=== PATIENT | male | born 1980 | race Caucasian/White ===

== ENCOUNTER 2018-04-04 23:45 | Emergency (ER) | payer SELFPAY ==
[2018-04-04 23:46] VITALS: BP 129/89; PULSE 105; RESP 14; TEMP 36.6; O2SAT 99; BMI 20.5
--- NOTE | 2018-04-05 01:26 | RAD_ITS ---
STUDY: X-RAY - LEFT HAND REASON FOR EXAM: Male, 38 years old. Infection. Open wound over second metacarpal. Swelling. TECHNIQUE: 3 view(s) of the hand. COMPARISON: None. FINDINGS: Normal radiocarpal articulation. Normal distal radioulnar joint. Normal visualized carpal bones. Normal carpal articulations Normal carpometacarpal articulation of the thumb. Normal second through fifth carpometacarpal joints. Normal metacarpi. Normal metacarpophalangeal joint of the thumb. Normal interphalangeal joint of the thumb. Normal proximal and distal phalanges of the thumb. Normal metacarpophalangeal joints of the second through fifth fingers. Normal proximal and distal interphalangeal joints of the second through fifth fingers. Normal phalanges of the second through fifth fingers. Soft tissue swelling dorsum of hand on the lateral view at the level of the metacarpal head and metacarpal phalangeal joint. No radiopaque foreign body. RAD/Hand Min 3 Views IMPRESSION: Soft tissue swelling dorsum of hand. No radiopaque foreign body. Electronically Signed: Boy Altman MD at 3:08 EDT , Service support ,
[2018-04-05] MEDS: Cefazolin 1 GM/50 ML BAG IV (01:52)
--- NOTE | 2018-04-05 02:28 | ED.VISSUMM ---
- ER Visit Summary Date of Service: 04/05/18 Chief Complaint: Left hand infection History of Present Illness: The patient is a 38 M presenting with left hand infection. He states 2 days ago a broken pipe cut his left hand. He then also hit it with a hammer on accident. He has had increasing swelling, redness and drainage from the wound. He has history of previous infection requiring surgery. He denies fever or other complaints. His tetanus is up-to-date. He admits to methamphetamine use. He states he did not use it today. Physical Examination: Vitals are stable. Patient is afebrile. Alert no acute distress. HEENT exam is unremarkable. Neck is supple. Lungs are clear and equal bilaterally. Heart is regular rate and rhythm. Extremities left dorsal hand 3 cm laceration with purulent drainage overlying first MCP, active full range of motion, neurovascularly intact distally. Skin is warm and dry. No focal neurologic deficit. Remainder of exam is unremarkable. Emergency Department Course and Treatment: Patient is given Ancef IV. X-ray left hand shows soft tissue swelling dorsum of hand. No radiopaque foreign body. Patient refuses admission to the hospital. He is advised risks of worsening infection, loss of limb, and . Patient understands these risks and signed out AGAINST MEDICAL ADVICE. He is given a prescription for Keflex and Bactrim. Advised to follow-up with primary care physician. Advised return to ED if he worsens. Disposition: Left AGAINST MEDICAL ADVICE Impression: Left hand wound infection This note was generated with [employer] dictation software. It may contain incorrect words, spelling, and punctuation that were not noted in review of the chart prior to signing ED Disposition - Plan for ED Patient: Disposition: Home or Assisted Living Chief Complaint: Wound Instructions: Wound Care Prescriptions: Cephalexin [Keflex] 500 mg PO Q6 #40 capsule Smz/Tmp Ds [Bactrim Ds] 1 tablet PO BID #14 tablet Referrals: Kelly Frazier DO [STAFF PHYSICIAN] - Care Physician,No Primary [Primary Care Provider] -
--- NOTE | 2018-04-05 03:10 | ED.DEP ---
ED Disposition - Plan for ED Patient: Chief Complaint: Wound Instructions: Wound Care Prescriptions: Cephalexin [Keflex] 500 mg PO Q6 #40 capsule Smz/Tmp Ds [Bactrim Ds] 1 tablet PO BID #14 tablet Referrals: Care Physician,No Primary [Primary Care Provider] - Kelly Frazier DO [STAFF PHYSICIAN] -
--- NOTE | 2018-04-05 03:27 | ED.RN ---
PT GETTING IMPATIENT WAITING FOR XRAY RESULTS. PT ANTIBIOTIC FINISHED. PT D/C HIS OWN IV AND COVERED IT WITH GAUZE. PT INSTRUCTED NOT TO DO THIS BY THIS RN. PT SINGS AMA FORMS AND VOICES NO FURTHER QUESTIONS. WOUND BANDAGED BY THIS RN WITH TELFA AND GAUZE WRAPPING. PT GIVEN WRITTEN AND VERBAL D/C INSTRUXCTIONS AND HOME GOING PRESCRIPTIONS. EDUCATED ON IMPORTANCE OF FINISHING ANTIBIOTIC. PT TO RETURN TO ED FOR ANY NEW OR WORSENED SX. PT AMBULATES OUT OF DEPT BY SELF.
== END 2018-04-05 03:29 | disposition home or self-care (01) ==
PROVIDERS: Emergency Provider Emergency Medicine
DX: S61.412A Laceration without foreign body of left hand, initial encounter (principal); L08.9 Local infection of the skin and subcutaneous tissue, unspecified; W26.8XXA Contact with other sharp object(s), not elsewhere classified, initial encounter; Y93.89 Activity, other specified; Y92.89 Other specified places as the place of occurrence of the external cause; Y99.8 Other external cause status
CPT/HCPCS: 73130; 99283; J7040

== ENCOUNTER 2020-10-05 17:36 | Inpatient (IN) | payer BC, MEDICAID, SELFPAY ==
[2020-10-05] VITALS (7 sets, daily range): BP systolic 133–149; BP diastolic 78–98; PULSE 70–114; RESP 16–18; TEMP 36.9–37.4; O2SAT 97–99; BMI 24.0; BMI 23.8; BMI 23.9
[2020-10-05 18:36] LABS: Absolute Lymphocyte Count 2.03 X10^3/uL (0.83-4.51); Basophil# 0.05 X10^3/uL; Basophil% 0.6 % (0-1); Eosinophil# 0.15 X10^3/uL; Eosinophils% 1.7 % (0-5); Hematocrit 42.7 % (40-54); Hemoglobin 14.3 g/dL (13.0-16.5); Lymphocyte # 2.03 X10^3/ul (4.0); Lymphocyte % 23.1 % (19-41); Mean Corp Hgb Conc 33.5 g/dL (32-36); Mean Corpuscular Volume 89.5 fL (80-94); Mean Platelet Vol. 10.1 fl (6.2-12.0); Monocyte# 0.54 X10^3/uL; Monocyte% 6.2 % (0-10); NRBC Flagged by Analyzer 0 % (0-5); Neutrophil # 5.98 X10^3/uL (2.7-7.7); Neutrophil % 68.1 % (47-70); Platelet Count 248 K/mm3 (150-450); RBC Distribution Width CV 11.9 % (11.6-14.6); RBC Distribution Width SD 38.5 fl (35.1-43.9); Red Blood Count 4.77 M/mm3 (4.6-6.2); White Blood Count 8.8 K/mm3 (4.4-11.0)
[2020-10-05 18:45] LABS: Erythrocyte Sedimentation Rate 5 mm/hr (0-20)
[2020-10-05 18:47] LABS: Anion Gap 4 (5-15); BUN 7 mg/dL (7-18); BUN/Creat Ratio 8.7 RATIO (10-20); CRP < 2.90 mg/L (0.0-3.0); Calcium,Total 8.5 mg/dL (8.5-10.1); Chloride 104 mmol/L (98-107); Creatinine, Serum 0.81 mg/dL (0.70-1.30); EST Glomerular Filtration Rate 114 mL/min (>60); Est Glom Filt Rate - Afr Amer 138 mL/min (>60); Glucose 85 mg/dL (74-106); Potassium 3.6 mmol/L (3.5-5.1); Sodium Level 139 mmol/L (136-145)
--- NOTE | 2020-10-05 19:10 | CT_ITS ---
STUDY: CT LEFT FOREARM WITH CONTRAST REASON FOR EXAM: Male, 40 years old. Left forearm abscess. Drug use. RADIATION DOSAGE (If Supplied By Facility): CTDIvol = ( 24.58 ) mGy, DLP = ( 892.49 ) mGycm TECHNIQUE: Transaxial CT imaging of the right upper extremity from above the elbow to the lower forearm was performed post contrast administration. The examination was performed with intravenous administration of Isovue 300 100ml. Sagittal and coronal images were reconstructed. Individualized dose optimization techniques were used for this CT. COMPARISON: None. FINDINGS: Normal visualized humerus. Normal visualized radius and ulna. There is no abnormality of the radiocapitellar or ulnotrochlear joints. There is diffuse subcutaneous edema the lower arm and upper forearm. In the antecubital space ill-defined fluid collection measuring 1.8 x 1.5 x 1.1 cm in size. There is surrounding edema with enhancement of the wall and surrounding soft tissues. There is enhancement of the tendon from the brachialis was marked abnormal signal within the lower brachialis musculature. CT/Extremity Upper WITH Contrast IMPRESSION: 1. Antecubital abscess. 2. Diffuse soft tissue edema. 3. Abnormal appearance of the distal brachialis musculature which appears low in attenuation in. Question myositis. Electronically Signed: Alirio Lynch DO at 19:54 EST Tel [phone], Service support ,
--- NOTE | 2020-10-05 20:02 | ED.DCSUM_ITS ---
- ER Visit Summary Date of Service: 10/05/20 Chief Complaint: Left arm pain History of Present Illness: The patient is a 40 M who uses IV drugs. He has had pain and swelling to his left forearm which is increasing over the past week. He thinks he missed his vein. Physical Examination: Afebrile and vital signs unremarkable. He has diffuse tenderness and swelling to his left forearm over the anterior side. I do not appreciate focal induration or fluctuance. Compartments are soft. Good range of motion. Neurovascularly intact. Test Results: Labs are all fairly unremarkable, but CT shows an antecubital abscess and questionable myositis. Emergency Department Course and Treatment: Patient was treated with antibiotics. Hospitalist contacted for further care. Hospitalist requested discussion with surgery prior to admission. Spoke with Dr. Mcclendon. She advised that the abscess appears to be in the muscle, and that there should go to orthopedics for further care. I spoke with Dr. Malloy. He said that the patient will need an MRI. I am unable to get an MRI tonight for this condition. Can be done in the morning. He requested admission to medicine for IV antibiotics with consultation to him. I reevaluated the patient. He has continued pain and swelling to his left forearm. I cannot palpate a definite abscess. His compartments remain soft despite the swelling. Good flexion and extension without increasing pain. Neurovascularly intact. I do not believe he has compartment syndrome. He has unremarkable labs and stable vitals. I do not believe he has necrosis at this point. He seems to be stable for admission. Treatment Plan: As above Disposition: Admission Impression: Left antecubital abscess, myositis This note was generated with [employer] dictation software. It may contain incorrect words, spelling, and punctuation that were not noted in review of the chart prior to signing ED Disposition - Plan for ED Patient: Referrals: Care Physician,No Primary [Primary Care Provider] -
--- NOTE | 2020-10-05 21:09 | HP.PCM_ITS ---
History of Present Illness Date of Admission: 10/05/20 Chief Complaint: Left forearm pain and swelling -5 days The patient is a 40 year old M with past medical history of polysubstance use, uses IV methamphetamines who comes in with a left forearm pain and swelling that started 5 days ago. Patient stated that shooting methamphetamines and missed the vein. He subsequently developed swelling in the left forearm as well as erythema and warmth. His left arm has progressively been getting bigger since. He denied any fever or chills or nausea or vomiting. Vitals were stable in the ED. admitting blood work was also unremarkable. CRP was less than 2.90. CT of the upper extremity showed antecubital abscess, diffuse soft tissue edema, abnormal appearance of the distal brachialis muscle, questionable myositis. Orthopedics consult was done from ED Past Medical History Allergies No Known Allergies Allergy (Verified 10/05/20 17:37) Home Medications: Ambulatory Orders Medication Instructions Recorded Ibuprofen 800 mg PO DAILY PRN PRN 10/05/20 Surgical History: - - To spouse left finger MRSA abscess I&D Psychiatric History: No pertinent psych hx Lives: With Family Smoking Status: Current every day smoker Tobacco Use: Cigarettes Alcohol: None Drugs: None - *Family History Maternal History Items: No pertinent history Paternal History Items: No pertinent history Review of Systems Constitutional: Denies: Anorexia, Chills, Fever, Malaise, Weakness, Weight Change Eyes: Denies: Blurred vision, Cataracts, Conjunctivae Inflammation, Pain, Redness HEENT: Denies: Difficulty Hearing, Difficulty Swallowing, Head Aches, Hearing Changes, Sinus Congestion, Sinus Drainage Cardiovascular: Denies: Chest Pain, Claudication, Orthopnea, Palpitations, Paroxysmal Noc. Dyspnea Respiratory: Denies: Cough, Hemoptysis, Shortness of breath at rest, Shortness of breath upon exertion, Sputum production Gastrointestinal: Denies: Abdominal Pain, Constipation, Hematemesis, Hematochezia, Nausea, Vomiting Genitourinary: Denies: Dysuria, Frequency, Incontinence, Nocturia Musculoskeletal: Reports: - - Status post left forearm swelling, pain. Denies: Joint Pain, Joint stiffness, Joint swelling, Joint Tenderness Skin: Denies: Pruritis, Rash, Wounds Neurological: Denies: Numbness, Tingling, Focal weakness Psychiatric: Denies: Anxiety, Depression, Homicidal Ideations, Suicidal Ideations Hematologic/ Lymphatic: Denies: Easy Bruising, Easy Bleeding VTE Information - Inpt Only VTE Present on Admission: No VTE Pharm Prophylaxis ordered?: Yes - Physical Exam Vitals/I&O's: Vital Signs Temp Pulse Resp BP Pulse Ox 98.6 F 99 18 134/78 H 99 10/05/20 19:00 10/05/20 19:00 10/05/20 19:00 10/05/20 19:51 10/05/20 19:00 Oxygen Delivery Method Room Air Weight: 78.4 kg Body Mass Index (BMI) 24.0 Intake and Output for Last 24 Hours 10/03/20 10/04/20 10/05/20 23:59 23:59 23:59 Intake Total 100 / 100 Balance 100 / 100 General: Alert, Oriented x3, Cooperative, No apparent distress HEENT: Atraumatic, PERRLA, EOMI, Normocephalic Oral: Moist Mucosa Neck: Supple Lungs: Clear to auscultation, Normal air movement Cardiovascular: Regular rate, Regular Rhythm, Normal S1, Normal S2, No murmurs Abdomen: Bowel Sounds Present, Soft, Non Tender, Non-Distended, No Hepato- splenomegaly Extremities: Tenderness - Significant swelling of the left forearm with erythema and differential warmth Skin: No rashes, No breakdown Musculoskeletal: No Tenderness to Palpation of Joints or Extremities Lymphatic: No Cervical, Supraclavicular, or Inguinal Adenopathy Neurological: Cranial nerves II-XII grossly intact, Neuro grossly intact Psych/Mental Status: Normal Affect, Appropriate Laboratory Results 10/05/20 18:15: WBC 8.8, RBC 4.77, Hgb 14.3, Hct 42.7, MCV 89.5, MCH 30.0, MCHC 33.5, RDW Std Deviation 38.5, RDW Coeff of Chuckie 11.9, Plt Count 248, MPV 10.1, Immature Gran % (Auto) 0.300, Neut % (Auto) 68.1, Lymph % (Auto) 23.1, Crawford % (Auto) 6.2, Eos % (Auto) 1.7, Baso % (Auto) 0.6, Absolute Neuts (auto) 6.0, Absolute Lymphs (auto) 2.03, Nucleated RBC % 0, ESR 5 10/05/20 18:15: Sodium 139, Potassium 3.6, Chloride 104, Carbon Dioxide 31.0, Anion Gap 4 L, BUN 7, Creatinine 0.81, Estim Creat Clear Calc 131.70, Est GFR (MDRD) Af Amer 138, Est GFR (MDRD) Non-Af 114, BUN/Creatinine Ratio 8.7 L, Glucose 85, Calcium 8.5, C-React Prot Ext Range < 2.90 Assessment/Plan 1. Acute left forearm antecubital abscess/possible myositis continue to IV drug use Started on IV vancomycin and Zosyn, continue on IV vancomycin and Unasyn Orthopedic consulted from ED Will await recommendations 2. Polysubstance use, advised to quit 3. Nicotine dependence, on replacement 4. DVT prophylaxis?low risk; early ambulation recommended Inpatient E&M: 80070 Init Hosp L2
[2020-10-05] MEDS: Ibuprofen 400 MG Tablet 800 MG PO (21:37)
--- NOTE | 2020-10-05 22:59 | PCM.RX.CS ---
Consult Pharmacy has been consulted to manage selected antiobiotic: Vancomycin Type of Consult: New start Suspected Infection: Skin/Soft tissue Prior Doses of Antibiotics Received/Current Regimen: Medications Vancomycin HCl (Vancomycin) 1,000 mg in 200 mls @ 200 mls/hr IV Q8H EDWIGE Discontinued Medications Vancomycin HCl 1,250 mg/ (Sodium Chloride) 275 mls @ 167 mls/hr IV X1 ONE Stop: 10/05/20 20:08 Last Admin: 10/05/20 22:20 Dose: Infused Labs: Sodium 139 mmol/L (136-145) 10/05/20 18:15 Potassium 3.6 mmol/L (3.5-5.1) 10/05/20 18:15 Chloride 104 mmol/L (98-107) 10/05/20 18:15 Carbon Dioxide 31.0 mmol/L (21.0-32.0) 10/05/20 18:15 Anion Gap 4 (5-15) L 10/05/20 18:15 BUN 7 mg/dL (7-18) 10/05/20 18:15 Creatinine 0.81 mg/dL (0.70-1.30) 10/05/20 18:15 Est GFR (MDRD) Af Amer 138 mL/min (>60) 10/05/20 18:15 Est GFR (MDRD) Non-Af 114 mL/min (>60) 10/05/20 18:15 BUN/Creatinine Ratio 8.7 RATIO (10-20) L 10/05/20 18:15 Glucose 85 mg/dL (74-106) 10/05/20 18:15 Weight used for dosin.5 kg Estimated Creatinine Clearance: 132 Goal Trough: 15-20 mcg/mL Pharmacy Plan for Drug Dosing: Pharmacy Service will continue to monitor and adjust dosing as required. Follow-Up Labs: Trough Vancomycin Labs to be done on [date and time ordered]: 10/06/20 @1999
--- NOTE | 2020-10-06 00:02 | PCS.PANDOC ---
PANDEMIC DOCUMENTATION INITIATED: Date: 10/05/20 Time: 1006
[2020-10-06 01:27] LABS: AST(SGOT) 22 U/L (15-37); Alanine Aminotransfer ALT/SGPT 38 U/L (16-61); Albumin, Serum 3.5 g/dL (3.2-5.0); Alkaline Phosphatase 70 U/L (45-117); Bilirubin, Direct 0.08 mg/dL (0.00-0.30); Globulin 3.5 g/dL (2.2-4.2)
[2020-10-06] MEDS: Vancomycin IV 1,000 MG/200 ML BAG 200 MG IV ×3 (04:24→20:15)
[2020-10-06 04:56] VITALS: BP 103/57; PULSE 67; RESP 16; TEMP 36.8; O2SAT 96
--- NOTE | 2020-10-06 07:51 | PN_ITS ---
Subjective: Patient seen and examined. He was admitted with a complaint of left forearm pain and swelling for 5 days after he injected IV methamphetamines. He thinks he missed the vein he subsequently developed swelling and redness and warmth in the site of the injection. He has been managed for left forearm abscess due to IV drug use. Orthopedics consulted. Patient still complains of pain in the left arm today. Review of systems otherwise negative. Vitals/I&O's: Vital Signs Temp Pulse Resp BP Pulse Ox 98.2 F 67 16 103/57 L 96 10/06/20 04:56 10/06/20 04:56 10/06/20 04:56 10/06/20 04:56 10/06/20 04:56 Oxygen Delivery Method Room Air Weight: 166 lb 7 oz Body Mass Index (BMI) 23.8 Intake and Output for Last 24 Hours 10/04/20 10/05/20 10/06/20 23:59 23:59 23:59 Intake Total 875 / 1175 1124 / 1124 Balance 875 / 1175 1124 / 1124 General: Alert, Oriented x3, Cooperative, No apparent distress HEENT: Atraumatic, PERRLA, EOMI, Normocephalic Oral: Moist Mucosa Neck: Supple, No JVD, Negative Carotid Bruits Lungs: Clear to auscultation, Normal air movement, No rhonchi, No wheeze Cardiovascular: Regular rate, Regular Rhythm, Normal S1, Normal S2, No murmurs Abdomen: Bowel Sounds Present, Soft, Non Tender Extremities: No clubbing, No cyanosis, No edema, Capillary Refill Less than 3 Seconds Skin: - - LUE wrapped in bandage Musculoskeletal: No Tenderness to Palpation of Joints or Extremities Lymphatic: No Cervical, Supraclavicular, or Inguinal Adenopathy Neurological: Cranial nerves II-XII grossly intact Psych/Mental Status: Normal Affect, Appropriate, Alert and oriented to time, place, person, mood and affect Laboratory Results 10/05/20 18:15: WBC 8.8, RBC 4.77, Hgb 14.3, Hct 42.7, MCV 89.5, MCH 30.0, MCHC 33.5, RDW Std Deviation 38.5, RDW Coeff of Chuckie 11.9, Plt Count 248, MPV 10.1, Immature Gran % (Auto) 0.300, Neut % (Auto) 68.1, Lymph % (Auto) 23.1, Vance % (Auto) 6.2, Eos % (Auto) 1.7, Baso % (Auto) 0.6, Absolute Neuts (auto) 6.0, Absolute Lymphs (auto) 2.03, Nucleated RBC % 0, ESR 5 10/05/20 18:15: Sodium 139, Potassium 3.6, Chloride 104, Carbon Dioxide 31.0, Anion Gap 4 L, BUN 7, Creatinine 0.81, Estim Creat Clear Calc 131.70, Est GFR (MDRD) Af Amer 138, Est GFR (MDRD) Non-Af 114, BUN/Creatinine Ratio 8.7 L, Glucose 85, Calcium 8.5, C-React Prot Ext Range < 2.90 10/05/20 18:50: Total Bilirubin 0.20, Direct Bilirubin 0.08, AST 22, ALT 38, Alkaline Phosphatase 70, Total Protein 7.0, Albumin 3.5, Globulin 3.5 Diagnostic Data Upper Extremity CT 10/05/20 19:10 IMPRESSION: 1. Antecubital abscess. 2. Diffuse soft tissue edema. 3. Abnormal appearance of the distal brachialis musculature which appears low in attenuation in. Question myositis. Electronically Signed: Alirio Lynch DO at 19:54 EST Tel [phone], Service support , Current Medications Acetaminophen (Acetaminophen 500 Mg Tablet) 500 mg PO Q4H PRN PRN PRN Reason: Temp > 100.4 F Acetaminophen (Acetaminophen 325 Mg Tablet) 650 mg PO Q6H PRN PRN PRN Reason: Pain Score 1-10 Al Hydroxide/Mg Hydroxide (Mag Hydrox/Al Hydrox/Simeth 30 Ml Udc) 30 ml PO Q6H PRN PRN PRN Reason: Gastric Burning Vancomycin IV Pharmacy to Dose (1 ea/ Sodium Chloride) 500 mls @ 250 mls/hr IV PRN PRN; Protocol PRN Reason: Rx to Dose Vancomycin HCl (Vancomycin) 1,000 mg in 200 mls @ 200 mls/hr IV Q8H EDWIGE Last Infusion: 10/06/20 05:28 Dose: Infused Documented by: Sodium Chloride () 250 mls @ 15 mls/hr IV .[id number] PRN PRN Reason: Saline Flush Ampicillin Sodium/Sulbactam (Sodium 3 gm/ Sodium Chloride) 112 mls @ 150 mls/hr IV Q8 [facility] Last Infusion: 10/06/20 06:29 Dose: Infused Documented by: Ibuprofen (Ibuprofen 600 Mg Tablet) 600 mg PO Q8H PRN PRN PRN Reason: Pain Score 1-10 Nicotine (Nicotine 21 Mg Patch) 21 mg TD DAILY [facility] Last Admin: 10/06/20 00:46 Dose: 21 mg Documented by: Nicotine Polacrilex (Nicotine Polacrilex 2 Mg Gum) 2 mg PO Q2H PRN PRN PRN Reason: Nicotine Craving Ondansetron HCl (Ondansetron 4 Mg/2 Ml Vial) 4 mg IV Q8H PRN PRN PRN Reason: NAUSEA/VOMITING Senna (Senna Tablet) 2 tablet PO QHS PRN PRN Reason: Constipation Sodium Chloride (0.9% Saline Lock 10 Ml Syringe) 10 - 40 ml IV UD PRN PRN Reason: SALINE FLUSH STROKE Vital Signs/Narrative: Vital Signs Temp Pulse Resp BP Pulse Ox 10/06/20 04:56 98.2 F 67 16 103/57 L 96 Medical Necessity - Tobacco Use Smoking Status: Current every day smoker Tobacco Use: Cigarettes Assessment/Plan #Acute left forearm abscess due to IV drug use * On IV vancomycin and Unasyn. * Orthopedics consulted, await recommendations. * Tylenol and ibuprofen as needed for pain * #Polysubstance abuse: Counseled on quitting. To follow-up with outpatient rehab services upon discharge #Nicotine dependence: Nicotine patch. Counseled to quit DVT prophylaxis: Low risk. Encouraged to ambulate. Inpatient E&M: 90425 Subs Hosp L2
[2020-10-06] MEDS: Ibuprofen 600 MG Tablet PO ×2 (08:01→16:36)
[2020-10-06 08:07] LABS: Absolute Lymphocyte Count 1.46 X10^3/uL (0.83-4.51); Absolute Neutrophil Count 9.6 X10^3/uL (2.0-7.7); Basophil# 0.04 X10^3/uL; Basophil% 0.3 % (0-1); Eosinophil# 0.13 X10^3/uL; Eosinophils% 1.1 % (0-5); Hematocrit 44.6 % (40-54); Hemoglobin 14.9 g/dL (13.0-16.5); Lymphocyte # 1.46 X10^3/ul (4.0); Mean Corp Hgb Conc 33.4 g/dL (32-36); Mean Corpuscular Hgb 29.7 pg (27.0-32.0); Mean Corpuscular Volume 88.8 fL (80-94); Mean Platelet Vol. 10.1 fl (6.2-12.0); Monocyte# 0.93 X10^3/uL; Monocyte% 7.6 % (0-10); NRBC Flagged by Analyzer 0 % (0-5); Neutrophil # 9.61 X10^3/uL (2.7-7.7); Neutrophil % 78.7 % (47-70); Platelet Count 259 K/mm3 (150-450); RBC Distribution Width CV 11.9 % (11.6-14.6); RBC Distribution Width SD 38.9 fl (35.1-43.9); Red Blood Count 5.02 M/mm3 (4.6-6.2); White Blood Count 12.2 K/mm3 (4.4-11.0)
[2020-10-06 08:27] LABS: Anion Gap 4 (5-15); BUN 6 mg/dL (7-18); BUN/Creat Ratio 8.7 RATIO (10-20); Calcium,Total 7.9 mg/dL (8.5-10.1); Chloride 108 mmol/L (98-107); Creatinine, Serum 0.69 mg/dL (0.70-1.30); EST Glomerular Filtration Rate 136 mL/min (>60); Est Glom Filt Rate - Afr Amer 165 mL/min (>60); Estimated Creatinine Clearance 149.88 ml/min; Glucose 101 mg/dL (74-106); Potassium 3.8 mmol/L (3.5-5.1); Sodium Level 140 mmol/L (136-145)
--- NOTE | 2020-10-06 09:19 | MRI_ITS ---
STUDY: MRI LEFT ELBOW REASON FOR EXAM: Male, 40 years old. lt elbow infection TECHNIQUE: Standardized fat and water weighted pulse sequences were obtained in all 3 orthogonal planes. COMPARISON: None. FINDINGS: Normal radio-capitellum articulation. Normal radial collateral ligamentous complex. Normal common extensor tendon. Normal ulnotrochlear articulation. Normal ulnar collateral ligamentous complex. Normal common flexor tendon. The cubital tunnel is normal, with a normal ulnar nerve. Normal biceps tendon and distal insertion. Normal lacertus fibrosis. Normal brachialis musculotendinous insertion. Normal triceps tendon and teno-osseous insertion. Normal olecranon process. The visualized distal humerus, proximal radius, and ulna are normal. There is diffuse skin thickening and edema of subcutaneous fat consistent with known cellulitis. There is significant edema of the brachialis muscle worrisome for myositis. No definite loculated fluid collection to suggest abscess. MRI/Upper Ext Joint Only(Routine) IMPRESSION: Cellulitis with myositis of the brachialis muscle. No MR evidence of abscess, septic arthritis, or osteomyelitis. Electronically Signed: Shawn Mustafa MD at 13:17 EST Tel , Service support ,
--- NOTE | 2020-10-06 09:57 | CASEMGMT ---
SW met w/pt in room in regard to prior level of function and anticipated discharge plan. PCP/Specialists: None Insurance: Griselda VAZQUEZ: Parents LW/POA: None Living arrangements: Pt lives home w/parents. Pt has children and has again started to see them. Pt is fully independent DME/HHC/SNF: None Plan: Home SW spoke w/pt in regard to substance abuse. Pt states was clean for 26.5 months, hasn't injected in over four years. He explains got in touch with a girl he used to know and was offered a line, didn't even think twice and used, started feeling good, and then injected also. Pt states a couple of days later his arm started hurting. Pt states he has his life finally in order and doesn't want to go back. He states he was bored, is not sure why he did what he did, expressing frustration w/himself for using. Pt has no intentions of using again. Pt states last time he got sober mostly on his own, did attend NA meetings but eventually stopped. Pt declined resources, states he may start going to NA and knows where to go. SW spoke w/pt also about anything he may need at discharge, pt does not anticipated needing home care, if he needs dressing changes he states he thinks can manage it. Pt was open to taking a list of PCPs, SW brought list in but pt is now at MRI. List left in room, RN aware. Plan: Home, no needs anticipated. Should needs arise, SW/CM are available. KARINA Reyes
[2020-10-06 10:56] VITALS: BP 142/76; PULSE 95; RESP 16; TEMP 36.8; O2SAT 96
[2020-10-06] MEDS: 0.9% Saline Lock 10 ML Syringe IV ×2 (11:37→20:16)
--- NOTE | 2020-10-06 14:00 | CON.PCM_ITS ---
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 Began developing swelling and pain 2 days later progressively worse presented to the ER 10/15/[address] scan questionable for antecubital abscess and myositis of brachialis. Denies fevers chills states erythema has improved however swelling and arm has gotten worse. He is right-hand dominant history of MRSA left index finger. Majority of his pain is in the arm and antecubital area. Past Medical History Allergies No Known Allergies Allergy (Verified 10/05/20 17:37) Home Medications: Ambulatory Orders Medication Instructions Recorded Ibuprofen 800 mg PO DAILY PRN PRN 10/05/20 Surgical History: - - To spouse left finger MRSA abscess I&D Psychiatric History: Depression Lives: With Family Smoking Status: Current every day smoker Tobacco Use: Cigarettes, Chew Alcohol: None Drugs: Marijuana, - - Methamphetamine - *Family History Maternal History Items: No pertinent history Paternal History Items: No pertinent history Review of Systems Constitutional: Denies: Chills, Fever, Night Sweats, Malaise, Fatigue Musculoskeletal: Reports: Arm Pain, Joint stiffness, Joint swelling, Muscle pain Neurological: Denies: Numbness, Tingling - Physical Exam Vitals/I&O's: Vital Signs Temp Pulse Resp BP Pulse Ox 98.2 F 95 16 142/76 H 96 10/06/20 10:56 10/06/20 10:56 10/06/20 10:56 10/06/20 10:56 10/06/20 10:56 Oxygen Delivery Method Room Air Weight: 166 lb 7 oz Body Mass Index (BMI) 23.8 Intake and Output for Last 24 Hours 10/04/20 10/05/20 10/06/20 23:59 23:59 23:59 Intake Total 875 / 1175 1436 / 1436 Balance 875 / 1175 1436 / 1436 General: Alert, Oriented x3, Cooperative, No apparent distress Extremities: Capillary Refill Less than 3 Seconds, Peripheral Pulses Normal, Tenderness, - - Left upper extremity with nearly full sleeve of tattoos. No joint effusion about the elbow compartments are soft however there is swelling in the arm anterior medial and forearm, no crepitation stiffness of elbow range of motion no gross motor or sensory deficits. Unable to appreciateinjectionsite Laboratory Results 10/05/20 18:15: WBC 8.8, RBC 4.77, Hgb 14.3, Hct 42.7, MCV 89.5, MCH 30.0, MCHC 33.5, RDW Std Deviation 38.5, RDW Coeff of Chuckie 11.9, Plt Count 248, MPV 10.1, Immature Gran % (Auto) 0.300, Neut % (Auto) 68.1, Lymph % (Auto) 23.1, [place] % (Auto) 6.2, Eos % (Auto) 1.7, Baso % (Auto) 0.6, Absolute Neuts (auto) 6.0, Absolute Lymphs (auto) 2.03, Nucleated RBC % 0, ESR 5 10/05/20 18:15: Sodium 139, Potassium 3.6, Chloride 104, Carbon Dioxide 31.0, Anion Gap 4 L, BUN 7, Creatinine 0.81, Estim Creat Clear Calc 131.70, Est GFR (MDRD) Af Amer 138, Est GFR (MDRD) Non-Af 114, BUN/Creatinine Ratio 8.7 L, Glucose 85, Calcium 8.5, C-React Prot Ext Range < 2.90 10/05/20 18:50: Total Bilirubin 0.20, Direct Bilirubin 0.08, AST 22, ALT 38, Al kaline Phosphatase 70, Total Protein 7.0, Albumin 3.5, Globulin 3.5 10/06/20 07:45: WBC 12.2 H, RBC 5.02, Hgb 14.9, Hct 44.6, MCV 88.8, MCH 29.7, MCHC 33.4, RDW Std Deviation 38.9, RDW Coeff of Chuckie 11.9, Plt Count 259, MPV 10.1, Immature Gran % (Auto) 0.300, Neut % (Auto) 78.7 H, Lymph % (Auto) 12.0 L, [place] % (Auto) 7.6, Eos % (Auto) 1.1, Baso % (Auto) 0.3, Absolute Neuts (auto) 9.6 H, Absolute Lymphs (auto) 1.46, Nucleated RBC % 0 10/06/20 07:45: Sodium 140, Potassium 3.8, Chloride 108 H, Carbon Dioxide 28.0, Anion Gap 4 L, BUN 6 L, Creatinine 0.69 L, Estim Creat Clear Calc 149.88, Est GFR (MDRD) Af Amer 165, Est GFR (MDRD) Non-Af 136, BUN/Creatinine Ratio 8.7 L, Glucose 101, Calcium 7.9 L Current Medications Acetaminophen (Acetaminophen 500 Mg Tablet) 500 mg PO Q4H PRN PRN PRN Reason: Temp > 100.4 F Acetaminophen (Acetaminophen 325 Mg Tablet) 650 mg PO Q6H PRN PRN PRN Reason: Pain Score 1-10 Al Hydroxide/Mg Hydroxide (Mag Hydrox/Al Hydrox/Simeth 30 Ml Udc) 30 ml PO Q6H PRN PRN PRN Reason: Gastric Burning Vancomycin IV Pharmacy to Dose (1 ea/ Sodium Chloride) 500 mls @ 250 mls/hr IV PRN PRN; Protocol PRN Reason: Rx to Dose Vancomycin HCl (Vancomycin) 1,000 mg in 200 mls @ 200 mls/hr IV Q8H [facility] Last Infusion: 10/06/20 12:37 Dose: Infused Documented by: Sodium Chloride () 250 mls @ 15 mls/hr IV .[id number] PRN PRN Reason: Saline Flush Ampicillin Sodium/Sulbactam (Sodium 3 gm/ Sodium Chloride) 112 mls @ 150 mls/hr IV Q8 [facility] Last Infusion: 10/06/20 13:51 Dose: Infused Documented by: Ibuprofen (Ibuprofen 600 Mg Tablet) 600 mg PO Q8H PRN PRN PRN Reason: Pain Score 1-10 Last Admin: 10/06/20 08:01 Dose: 600 mg Documented by: Nicotine (Nicotine 21 Mg Patch) 21 mg TD DAILY [facility] Last Admin: 10/06/20 08:02 Dose: 21 mg Documented by: Nicotine Polacrilex (Nicotine Polacrilex 2 Mg Gum) 2 mg PO Q2H PRN PRN PRN Reason: Nicotine Craving Ondansetron HCl (Ondansetron 4 Mg/2 Ml Vial) 4 mg IV Q8H PRN PRN PRN Reason: NAUSEA/VOMITING Senna (Senna Tablet) 2 tablet PO QHS PRN PRN Reason: Constipation Sodium Chloride (0.9% Saline Lock 10 Ml Syringe) 10 - 40 ml IV UD PRN PRN Reason: SALINE FLUSH Last Admin: 10/06/20 11:37 Dose: 10 ml Documented by: Assessment/Plan Left elbow cellulitis myositis of brachialis extensive without abscess or osteomyelitis confirmed by MRI Will need IV antibiotics until clinical response then conversion to broad- spectrum oral antibiotics upon discharge Encourage elbow range of motion, surgical intervention warranted at this point. Counseled on tobacco and drug cessation.
[2020-10-06 17:00] VITALS: BP 134/75; PULSE 71; RESP 18; TEMP 37.2; O2SAT 95
[2020-10-06] MEDS: Acetaminophen 325 MG Tablet 650 MG PO (20:21)
[2020-10-06 20:22] VITALS: BP 123/67; PULSE 87; RESP 16; TEMP 36.9; O2SAT 95
[2020-10-06 20:49] LABS: Vancomycin, Trough Level 7.1 ug/mL (5.0-15.0)
--- NOTE | 2020-10-06 21:23 | PCM.RX.CS ---
Consult Pharmacy has been consulted to manage selected antiobiotic: Vancomycin Type of Consult: Follow-up Suspected Infection: Skin/Soft tissue Prior Doses of Antibiotics Received/Current Regimen: Medications Vancomycin HCl 1,500 mg/ (Sodium Chloride) 530 mls @ 250 mls/hr IV Q8H [facility] Discontinued Medications Vancomycin HCl (Vancomycin) 1,000 mg in 200 mls @ 200 mls/hr IV Q8H [facility] Last Admin: 10/06/20 20:15 Dose: 200 mls/hr Labs: Sodium 140 mmol/L (136-145) 10/06/20 07:45 Potassium 3.8 mmol/L (3.5-5.1) 10/06/20 07:45 Chloride 108 mmol/L (98-107) H 10/06/20 07:45 Carbon Dioxide 28.0 mmol/L (21.0-32.0) 10/06/20 07:45 Anion Gap 4 (5-15) L 10/06/20 07:45 BUN 6 mg/dL (7-18) L 10/06/20 07:45 Creatinine 0.69 mg/dL (0.70-1.30) L 10/06/20 07:45 Est GFR (MDRD) Af Amer 165 mL/min (>60) 10/06/20 07:45 Est GFR (MDRD) Non-Af 136 mL/min (>60) 10/06/20 07:45 BUN/Creatinine Ratio 8.7 RATIO (10-20) L 10/06/20 07:45 Glucose 101 mg/dL (74-106) 10/06/20 07:45 Vancomycin Trough 7.1 ug/mL (5.0-15.0) 10/06/20 19:55 Weight used for dosin.5 kg Estimated Creatinine Clearance: 150 Goal Trough: 15-20 mcg/mL Pharmacy Plan for Drug Dosing: Vancomycin trough level of 7.1 was below target range of 15-20. Will increase dose to 1500mg q8h and re-draw trough prior to 4th dose of new regimen. Pharmacy Service will continue to monitor and adjust dosing as required. Follow-Up Labs: Trough Vancomycin Labs to be done on [date and time ordered]: 10/08/20 @0400
[2020-10-07 04:00] VITALS: BP 113/71; PULSE 70; RESP 16; TEMP 36.7; O2SAT 95
[2020-10-07 07:34] VITALS: BP 132/61; PULSE 71; RESP 16; TEMP 36.4; O2SAT 98
[2020-10-07] MEDS: Ibuprofen 600 MG Tablet PO ×2 (07:42→17:47)
--- NOTE | 2020-10-07 07:56 | PN_ITS ---
Subjective: Patient seen and examined. He still complains of pain in his left anterior forearm region. Review of symptoms otherwise negative. He has remained hemodynamically stable. Vitals/I&O's: Vital Signs Temp Pulse Resp BP Pulse Ox 97.6 F L 71 16 132/61 H 98 10/07/20 07:34 10/07/20 07:34 10/07/20 07:34 10/07/20 07:34 10/07/20 07:34 Oxygen Delivery Method Room Air Weight: 166 lb 7 oz Body Mass Index (BMI) 23.8 Intake and Output for Last 24 Hours 10/05/20 10/06/20 10/07/20 23:59 23:59 23:59 Intake Total 875 / 1175 1748 / 1748 642 / 642 Balance 875 / 1175 1748 / 1748 642 / 642 General: Alert, Oriented x3, Cooperative, No apparent distress HEENT: Atraumatic, PERRLA, EOMI, Normocephalic Oral: Moist Mucosa Neck: Supple, No JVD, Negative Carotid Bruits Lungs: Clear to auscultation, Normal air movement, No rhonchi, No wheeze Cardiovascular: Regular rate, Regular Rhythm, Normal S1, Normal S2, No murmurs Abdomen: Bowel Sounds Present, Soft, Non Tender Extremities: No clubbing, No cyanosis, No edema, Capillary Refill Less than 3 Seconds Skin: - - LUE has firm swelling and tenderness as well as mild erythema in antecubital fossa and upper inner arm Musculoskeletal: No Tenderness to Palpation of Joints or Extremities Lymphatic: No Cervical, Supraclavicular, or Inguinal Adenopathy Neurological: Cranial nerves II-XII grossly intact Psych/Mental Status: Normal Affect, Appropriate, Alert and oriented to time, place, person, mood and affect Laboratory Results 10/06/20 07:45: WBC 12.2 H, RBC 5.02, Hgb 14.9, Hct 44.6, MCV 88.8, MCH 29.7, MCHC 33.4, RDW Std Deviation 38.9, RDW Coeff of Chuckie 11.9, Plt Count 259, MPV 10.1, Immature Gran % (Auto) 0.300, Neut % (Auto) 78.7 H, Lymph % (Auto) 12.0 L, [place] % (Auto) 7.6, Eos % (Auto) 1.1, Baso % (Auto) 0.3, Absolute Neuts (auto) 9.6 H, Absolute Lymphs (auto) 1.46, Nucleated RBC % 0 10/06/20 07:45: Sodium 140, Potassium 3.8, Chloride 108 H, Carbon Dioxide 28.0, Anion Gap 4 L, BUN 6 L, Creatinine 0.69 L, Estim Creat Clear Calc 149.88, Est GFR (MDRD) Af Amer 165, Est GFR (MDRD) Non-Af 136, BUN/Creatinine Ratio 8.7 L, Glucose 101, Calcium 7.9 L 10/06/20 19:55: Vancomycin Trough 7.1 Current Medications Acetaminophen (Acetaminophen 500 Mg Tablet) 500 mg PO Q4H PRN PRN PRN Reason: Temp > 100.4 F Acetaminophen (Acetaminophen 325 Mg Tablet) 650 mg PO Q6H PRN PRN PRN Reason: Pain Score 1-10 Last Admin: 10/06/20 20:21 Dose: 650 mg Documented by: Al Hydroxide/Mg Hydroxide (Mag Hydrox/Al Hydrox/Simeth 30 Ml Udc) 30 ml PO Q6H PRN PRN PRN Reason: Gastric Burning Vancomycin IV Pharmacy to Dose (1 ea/ Sodium Chloride) 500 mls @ 250 mls/hr IV PRN PRN; Protocol PRN Reason: Rx to Dose Sodium Chloride () 250 mls @ 15 mls/hr IV .[id number] PRN PRN Reason: Saline Flush Last Infusion: 10/07/20 03:56 Dose: 0 mls/hr Documented by: Ampicillin Sodium/Sulbactam (Sodium 3 gm/ Sodium Chloride) 112 mls @ 150 mls/hr IV Q8 [facility] Last Infusion: 10/07/20 07:45 Dose: Infused Documented by: Vancomycin HCl 1,500 mg/ (Sodium Chloride) 530 mls @ 250 mls/hr IV Q8H [facility] Last Infusion: 10/07/20 06:47 Dose: Infused Documented by: Ibuprofen (Ibuprofen 600 Mg Tablet) 600 mg PO Q8H PRN PRN PRN Reason: Pain Score 1-10 Last Admin: 10/07/20 07:42 Dose: 600 mg Documented by: Nicotine (Nicotine 21 Mg Patch) 21 mg TD DAILY [facility] Last Admin: 10/07/20 07:43 Dose: 21 mg Documented by: Nicotine Polacrilex (Nicotine Polacrilex 2 Mg Gum) 2 mg PO Q2H PRN PRN PRN Reason: Nicotine Craving Ondansetron HCl (Ondansetron 4 Mg/2 Ml Vial) 4 mg IV Q8H PRN PRN PRN Reason: NAUSEA/VOMITING Senna (Senna Tablet) 2 tablet PO QHS PRN PRN Reason: Constipation Sodium Chloride (0.9% Saline Lock 10 Ml Syringe) 10 - 40 ml IV UD PRN PRN Reason: SALINE FLUSH Last Admin: 10/06/20 20:16 Dose: 10 ml Documented by: STROKE Vital Signs/Narrative: Vital Signs Temp Pulse Resp BP Pulse Ox 10/07/20 07:34 97.6 F L 71 16 132/61 H 98 10/07/20 04:00 98.0 F 70 16 113/71 95 Medical Necessity - Tobacco Use Smoking Status: Current every day smoker Tobacco Use: Cigarettes, Chew Assessment/Plan #Acute left forearm cellulitis and myositis due to IV drug use * On IV vancomycin and Unasyn. * MRI of the LUE showed myositis and cellulitis with no evidence of abscess * orthopedics on board: advocate medical management and to continue with IV antibiotics, until swelling and pain subside, then to switch to oral antibiotics * Tylenol and ibuprofen as needed for pain * #Polysubstance abuse: Counseled on quitting. To follow-up with outpatient rehab services upon discharge #Nicotine dependence: Nicotine patch. Counseled to quit DVT prophylaxis: Low risk. Encouraged to ambulate. Inpatient E&M: [id number] Subs Hosp L2
[2020-10-07 08:19] LABS: Absolute Lymphocyte Count 1.42 X10^3/uL (0.83-4.51); Absolute Neutrophil Count 8.7 X10^3/uL (2.0-7.7); Basophil# 0.03 X10^3/uL; Basophil% 0.3 % (0-1); Eosinophil# 0.14 X10^3/uL; Eosinophils% 1.2 % (0-5); Hematocrit 41.8 % (40-54); Lymphocyte # 1.42 X10^3/ul (4.0); Lymphocyte % 12.6 % (19-41); Mean Corp Hgb Conc 33.5 g/dL (32-36); Mean Corpuscular Hgb 29.7 pg (27.0-32.0); Mean Corpuscular Volume 88.7 fL (80-94); Mean Platelet Vol. 9.9 fl (6.2-12.0); Monocyte# 0.96 X10^3/uL; Monocyte% 8.5 % (0-10); NRBC Flagged by Analyzer 0 % (0-5); Neutrophil # 8.69 X10^3/uL (2.7-7.7); Neutrophil % 77.1 % (47-70); Platelet Count 234 K/mm3 (150-450); RBC Distribution Width SD 38.8 fl (35.1-43.9); Red Blood Count 4.71 M/mm3 (4.6-6.2); White Blood Count 11.3 K/mm3 (4.4-11.0)
[2020-10-07 08:30] LABS: Anion Gap 4 (5-15); BUN 7 mg/dL (7-18); BUN/Creat Ratio 10.4 RATIO (10-20); Calcium,Total 8.3 mg/dL (8.5-10.1); Chloride 109 mmol/L (98-107); Creatinine, Serum 0.68 mg/dL (0.70-1.30); EST Glomerular Filtration Rate 139 mL/min (>60); Est Glom Filt Rate - Afr Amer 168 mL/min (>60); Estimated Creatinine Clearance 152.08 ml/min; Glucose 91 mg/dL (74-106); Potassium 3.9 mmol/L (3.5-5.1); Sodium Level 140 mmol/L (136-145)
--- NOTE | 2020-10-07 09:51 | PN.ORTHO_ITS ---
Subjective: seen examined. doing ok. still pain feels may be slightly better, no fever chills. - Physical Exam Vitals/I&O's: Vital Signs Temp Pulse Resp BP Pulse Ox 97.6 F L 71 16 132/61 H 98 10/07/20 07:34 10/07/20 07:34 10/07/20 07:34 10/07/20 07:34 10/07/20 07:34 Oxygen Delivery Method Room Air Weight: 166 lb 7 oz Body Mass Index (BMI) 23.8 Intake and Output for Last 24 Hours 10/05/20 10/06/20 10/07/20 23:59 23:59 23:59 Intake Total 875 / 1175 1748 / 1748 642 / 642 Balance 875 / 1175 1748 / 1748 642 / 642 General: Alert, Oriented x3, Cooperative, No apparent distress Extremities: - - may be slight decreased swelling and improved ROM. compartments soft. NVI no crepitation. Laboratory Results 10/06/20 19:55: Vancomycin Trough 7.1 10/07/20 08:10: WBC 11.3 H, RBC 4.71, Hgb 14.0, Hct 41.8, MCV 88.7, MCH 29.7, MCHC 33.5, RDW Std Deviation 38.8, RDW Coeff of Chuckie 12.0, Plt Count 234, MPV 9.9, Immature Gran % (Auto) 0.300, Neut % (Auto) 77.1 H, Lymph % (Auto) 12.6 L, [place] % (Auto) 8.5, Eos % (Auto) 1.2, Baso % (Auto) 0.3, Absolute Neuts (auto) 8.7 H, Absolute Lymphs (auto) 1.42, Nucleated RBC % 0 10/07/20 08:10: Sodium 140, Potassium 3.9, Chloride 109 H, Carbon Dioxide 27.0, Anion Gap 4 L, BUN 7, Creatinine 0.68 L, Estim Creat Clear Calc 152.08, Est GFR (MDRD) Af Amer 168, Est GFR (MDRD) Non-Af 139, BUN/Creatinine Ratio 10.4, Glucose 91, Calcium 8.3 L Current Medications Acetaminophen (Acetaminophen 500 Mg Tablet) 500 mg PO Q4H PRN PRN PRN Reason: Temp > 100.4 F Acetaminophen (Acetaminophen 325 Mg Tablet) 650 mg PO Q6H PRN PRN PRN Reason: Pain Score 1-10 Last Admin: 10/06/20 20:21 Dose: 650 mg Documented by: Al Hydroxide/Mg Hydroxide (Mag Hydrox/Al Hydrox/Simeth 30 Ml Udc) 30 ml PO Q6H PRN PRN PRN Reason: Gastric Burning Vancomycin IV Pharmacy to Dose (1 ea/ Sodium Chloride) 500 mls @ 250 mls/hr IV PRN PRN; Protocol PRN Reason: Rx to Dose Sodium Chloride () 250 mls @ 15 mls/hr IV .[id number] PRN PRN Reason: Saline Flush Last Infusion: 10/07/20 03:56 Dose: 0 mls/hr Documented by: Ampicillin Sodium/Sulbactam (Sodium 3 gm/ Sodium Chloride) 112 mls @ 150 mls/hr IV Q8 [facility] Last Infusion: 10/07/20 07:45 Dose: Infused Documented by: Vancomycin HCl 1,500 mg/ (Sodium Chloride) 530 mls @ 250 mls/hr IV Q8H [facility] Last Infusion: 10/07/20 06:47 Dose: Infused Documented by: Ibuprofen (Ibuprofen 600 Mg Tablet) 600 mg PO Q8H PRN PRN PRN Reason: Pain Score 1-10 Last Admin: 10/07/20 07:42 Dose: 600 mg Documented by: Nicotine (Nicotine 21 Mg Patch) 21 mg TD DAILY [facility] Last Admin: 10/07/20 07:43 Dose: 21 mg Documented by: Nicotine Polacrilex (Nicotine Polacrilex 2 Mg Gum) 2 mg PO Q2H PRN PRN PRN Reason: Nicotine Craving Ondansetron HCl (Ondansetron 4 Mg/2 Ml Vial) 4 mg IV Q8H PRN PRN PRN Reason: NAUSEA/VOMITING Senna (Senna Tablet) 2 tablet PO QHS PRN PRN Reason: Constipation Sodium Chloride (0.9% Saline Lock 10 Ml Syringe) 10 - 40 ml IV UD PRN PRN Reason: SALINE FLUSH Last Admin: 10/06/20 20:16 Dose: 10 ml Documented by: Medical Necessity - Tobacco Use Smoking Status: Current every day smoker Tobacco Use: Cigarettes, Chew Assessment/Plan Left elbow cellulitis myositis of brachialis extensive without abscess or osteomyelitis confirmed by MRI Will need IV antibiotics until clinical response then conversion to broad- spectrum oral antibiotics upon discharge Encourage elbow range of motion, No surgical intervention warranted at this point. Counseled on tobacco and drug cessation. Continue current plan.
[2020-10-07 12:32] VITALS: BP 131/73; PULSE 75; RESP 16; TEMP 37; O2SAT 98
[2020-10-07 14:49] VITALS: BP 125/70; PULSE 73; RESP 16; TEMP 36.5; O2SAT 99
[2020-10-07] MEDS: 0.9% Saline Lock 10 ML Syringe IV (19:57)
[2020-10-07 20:02] VITALS: BP 115/74; PULSE 73; RESP 16; TEMP 36.8; O2SAT 98
[2020-10-08] MEDS: 0.9% Saline Lock 10 ML Syringe IV (04:08)
[2020-10-08 04:15] VITALS: BP 111/72; PULSE 59; RESP 16; TEMP 36.7; O2SAT 98
[2020-10-08 04:56] LABS: Absolute Lymphocyte Count 1.63 X10^3/uL (0.83-4.51); Absolute Neutrophil Count 4.9 X10^3/uL (2.0-7.7); Basophil# 0.04 X10^3/uL; Basophil% 0.5 % (0-1); Eosinophil# 0.21 X10^3/uL; Eosinophils% 2.8 % (0-5); Hematocrit 43.1 % (40-54); Hemoglobin 14.6 g/dL (13.0-16.5); Lymphocyte # 1.63 X10^3/ul (4.0); Lymphocyte % 21.7 % (19-41); Mean Corp Hgb Conc 33.9 g/dL (32-36); Mean Corpuscular Hgb 30.1 pg (27.0-32.0); Mean Corpuscular Volume 88.9 fL (80-94); Mean Platelet Vol. 10.1 fl (6.2-12.0); Monocyte# 0.75 X10^3/uL; NRBC Flagged by Analyzer 0 % (0-5); Neutrophil # 4.85 X10^3/uL (2.7-7.7); Neutrophil % 64.7 % (47-70); Platelet Count 252 K/mm3 (150-450); RBC Distribution Width CV 11.9 % (11.6-14.6); RBC Distribution Width SD 38.9 fl (35.1-43.9); Red Blood Count 4.85 M/mm3 (4.6-6.2); White Blood Count 7.5 K/mm3 (4.4-11.0)
[2020-10-08 05:14] LABS: Anion Gap 5 (5-15); BUN 9 mg/dL (7-18); BUN/Creat Ratio 15.1 RATIO (10-20); Calcium,Total 8.2 mg/dL (8.5-10.1); Chloride 109 mmol/L (98-107); EST Glomerular Filtration Rate 161 mL/min (>60); Est Glom Filt Rate - Afr Amer 195 mL/min (>60); Estimated Creatinine Clearance 172.36 ml/min; Glucose 87 mg/dL (74-106); Potassium 3.8 mmol/L (3.5-5.1); Sodium Level 140 mmol/L (136-145)
[2020-10-08 05:22] LABS: Vancomycin, Trough Level 13.6 ug/mL (5.0-15.0)
[2020-10-08] MEDS: Ibuprofen 600 MG Tablet PO (07:19)
[2020-10-08 07:28] VITALS: BP 123/68; PULSE 73; RESP 16; TEMP 36.6; O2SAT 96
--- NOTE | 2020-10-08 07:28 | PN_ITS ---
Objective: No fever. Heart rate and blood pressure in acceptable limit. Vitals/I&O's: Vital Signs Temp Pulse Resp BP Pulse Ox 98.0 F 59 L 16 111/72 98 10/08/20 04:15 10/08/20 04:15 10/08/20 04:15 10/08/20 04:15 10/08/20 04:15 Oxygen Delivery Method Room Air Weight: 166 lb 7 oz Body Mass Index (BMI) 23.8 Intake and Output for Last 24 Hours 10/06/20 10/07/20 10/08/20 23:59 23:59 23:59 Intake Total 1748 / 1748 3177.75 / 3177.75 544 / 544 Balance 1748 / 1748 3177.75 / 3177.75 544 / 544 Laboratory Results 10/07/20 08:10: WBC 11.3 H, RBC 4.71, Hgb 14.0, Hct 41.8, MCV 88.7, MCH 29.7, MCHC 33.5, RDW Std Deviation 38.8, RDW Coeff of Chuckie 12.0, Plt Count 234, MPV 9.9, Immature Gran % (Auto) 0.300, Neut % (Auto) 77.1 H, Lymph % (Auto) 12.6 L, [place] % (Auto) 8.5, Eos % (Auto) 1.2, Baso % (Auto) 0.3, Absolute Neuts (auto) 8.7 H, Absolute Lymphs (auto) 1.42, Nucleated RBC % 0 10/07/20 08:10: Sodium 140, Potassium 3.9, Chloride 109 H, Carbon Dioxide 27.0, Anion Gap 4 L, BUN 7, Creatinine 0.68 L, Estim Creat Clear Calc 152.08, Est GFR (MDRD) Af Amer 168, Est GFR (MDRD) Non-Af 139, BUN/Creatinine Ratio 10.4, Glucose 91, Calcium 8.3 L 10/08/20 04:10: Vancomycin Trough 13.6 10/08/20 04:10: WBC 7.5, RBC 4.85, Hgb 14.6, Hct 43.1, MCV 88.9, MCH 30.1, MCHC 33.9, RDW Std Deviation 38.9, RDW Coeff of Chuckie 11.9, Plt Count 252, MPV 10.1, Immature Gran % (Auto) 0.300, Neut % (Auto) 64.7, Lymph % (Auto) 21.7, [place] % (Auto) 10.0, Eos % (Auto) 2.8, Baso % (Auto) 0.5, Absolute Neuts (auto) 4.9, Absolute Lymphs (auto) 1.63, Nucleated RBC % 0 10/08/20 04:10: Sodium 140, Potassium 3.8, Chloride 109 H, Carbon Dioxide 26.0, Anion Gap 5, BUN 9, Creatinine 0.60 L, Estim Creat Clear Calc 172.36, Est GFR (MDRD) Af Amer 195, Est GFR (MDRD) Non-Af 161, BUN/Creatinine Ratio 15.1, Glucose 87, Calcium 8.2 L Current Medications Acetaminophen (Acetaminophen 500 Mg Tablet) 500 mg PO Q4H PRN PRN PRN Reason: Temp > 100.4 F Acetaminophen (Acetaminophen 325 Mg Tablet) 650 mg PO Q6H PRN PRN PRN Reason: Pain Score 1-10 Last Admin: 10/06/20 20:21 Dose: 650 mg Documented by: Al Hydroxide/Mg Hydroxide (Mag Hydrox/Al Hydrox/Simeth 30 Ml Udc) 30 ml PO Q6H PRN PRN PRN Reason: Gastric Burning Vancomycin IV Pharmacy to Dose (1 ea/ Sodium Chloride) 500 mls @ 250 mls/hr IV PRN PRN; Protocol PRN Reason: Rx to Dose Sodium Chloride () 250 mls @ 15 mls/hr IV .[id number] PRN PRN Reason: Saline Flush Last Infusion: 10/08/20 00:15 Dose: 0 mls/hr Documented by: Ampicillin Sodium/Sulbactam (Sodium 3 gm/ Sodium Chloride) 112 mls @ 150 mls/hr IV Q8 [facility] Last Admin: 10/08/20 06:50 Dose: 150 mls/hr Documented by: Vancomycin HCl 1,500 mg/ (Sodium Chloride) 530 mls @ 250 mls/hr IV Q8H [facility] Last Infusion: 10/08/20 06:50 Dose: Infused Documented by: Ibuprofen (Ibuprofen 600 Mg Tablet) 600 mg PO Q8H PRN PRN PRN Reason: Pain Score 1-10 Last Admin: 10/08/20 07:19 Dose: 600 mg Documented by: Nicotine (Nicotine 21 Mg Patch) 21 mg TD DAILY [facility] Last Admin: 10/08/20 07:15 Dose: 21 mg Documented by: Nicotine Polacrilex (Nicotine Polacrilex 2 Mg Gum) 2 mg PO Q2H PRN PRN PRN Reason: Nicotine Craving Ondansetron HCl (Ondansetron 4 Mg/2 Ml Vial) 4 mg IV Q8H PRN PRN PRN Reason: NAUSEA/VOMITING Senna (Senna Tablet) 2 tablet PO QHS PRN PRN Reason: Constipation Sodium Chloride (0.9% Saline Lock 10 Ml Syringe) 10 - 40 ml IV UD PRN PRN Reason: SALINE FLUSH Last Admin: 10/08/20 04:08 Dose: 10 ml Documented by: STROKE Vital Signs/Narrative: Vital Signs Temp Pulse Resp BP Pulse Ox 10/08/20 04:15 98.0 F 59 L 16 111/72 98 Medical Necessity - Tobacco Use Smoking Status: Current every day smoker Tobacco Use: Cigarettes, Chew Assessment/Plan #Acute left forearm cellulitis and myositis due to IV drug use * On IV vancomycin and Unasyn. * MRI of the LUE showed myositis and cellulitis with no evidence of abscess * orthopedics on board: advocate medical management and to continue with IV antibiotics, until swelling and pain subside, then to switch to oral an tibiotics * Tylenol and ibuprofen as needed for pain * #Polysubstance abuse: Counseled on quitting. To follow-up with outpatient rehab services upon discharge #Nicotine dependence: Nicotine patch. Counseled to quit DVT prophylaxis: Low risk. Encouraged to ambulate.
--- NOTE | 2020-10-08 11:15 | DCINST_ITS ---
You will use the following diet at home:: Regular Your food should be the consistency of: Regular Your liquids should be the consistency of: Regular/Thin Discharge Activity: May Not Drive Weight Bearing Status: Weight bearing as tolerated Keep extremity elevated above heart level: Left Arm Call your doctor if you observe: Fever of 101 or Higher, Coldness, Increased Pain, Numbness or Tingling, Change in Color, Inability to urinate, Inability to have a bowel movement, Shortness of breath, Dizziness, Fainting spells, Swelling in the ankles, Chest pain, Prolonged hiccoughing, Increased palpitations (irregular heartbeat), Calf discomfort, Uncontrolled pain Additional Instructions: Advised to rest left upper extremity with no heavy fork pushing and pulling for 2 weeks. Allergies/Adverse Reactions: Allergies No Known Allergies Allergy (Verified 10/05/20 17:37) Medications to take at Discharge Amox/Clavulanate Tablet [Augmentin Tablet] 875 mg PO Q12H #14 tab 10/08/20 Ibuprofen 600 mg PO Q8H PRN #0 10/08/20 Nicotine [Nicoderm Cq] 21 mg TD DAILY #30 patch 10/08/20 The following prescriptions were given: Amox/Clavulanate Tablet [Augmentin Tablet] 875 mg PO Q12H #14 tab Transmission Status: Pending to [id number] Nicotine [Nicoderm Cq] 21 mg TD DAILY #30 patch Transmission Status: Pending to [id number] Primary Care Physician: Care Physician,No Primary [Primary Care Provider] - Please follow up with your Primary Care Physician in: In 2 weeks Test Results: Test results from this visit will be discussed in further detail at your follow- up appointment, if applicable. Please Follow Up With: Dylan Malloy DO When: In 1-2 weeks
--- NOTE | 2020-10-08 11:16 | DS.PCM_ITS ---
Discharge Date and Diagnosis Date of Admission: 10/05/20 Date of Discharge: 10/08/20 Hospital Course and Treatment Summary of Care Provided: This 40-year-old gentleman admitted with pain, swelling, induration and tenderness of left arm. 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 Patient was admitted on [facility] floor. Left upper extremity MRI was done which shows cellulitis with myositis of the brachialis muscle but no MRI evidence of abscess, septic arthritis or osteomyelitis. Patient was seen by orthopedic surgeon Dr. Malloy who recommended conservative management with IV antibiotics with no role of surgical intervention. Patient was started initially on IV vancomycin and Unasyn. Discussed with ID and agreed on the plan to discharge on 7 more days of Augmentin 8 and 75 mg twice daily. Patient was counseled to quit substance use including IV drug use. Ibuprofen as needed for pain. Nicotine patch prescription was given. Discharge medication reconciliation done. Discharge follow-up instructions completed. Discharge process discussed with the patient and all questions were answered to patient's satisfaction. Prescription for Augmentin was sent to patient's pharmacy. Total time spent, exact 35 minutes on discharge meds reconciliation, examination, coordination of care with nurses and ancillary staff, review of imaging and blood test and discussion with the patient on follow-up instructions. [] Clinical Impression(s) from Imaging Studies Upper Extremity CT 10/05/20 19:10 IMPRESSION: 1. Antecubital abscess. 2. Diffuse soft tissue edema. 3. Abnormal appearance of the distal brachialis musculature which appears low in attenuation in. Question myositis. Upper Extremity MRI 10/06/20 09:19 IMPRESSION: Cellulitis with myositis of the brachialis muscle. No MR evidence of abscess, septic arthritis, or osteomyelitis. Objective: Patient's left arm swelling has decreased more than 50%. No open ulcer or wo und. Pain has decreased. 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 No fever since admission. Heart rate and blood pressure controlled. Physical exam General: Alert, Oriented x3, Cooperative HEENT: Atraumatic, PERRLA, EOMI, Normocephalic Oral: No Gingival or Mucosal Lesions/ Ulcerations Neck: Supple, No JVD, Negative Carotid Bruits Lungs: Air entry diminished in bilateral lung bases. No crepitation/rhonchi Cardiovascular: Regular rate, Regular Rhythm, Normal S1, Normal S2, No murmurs Abdomen: Bowel Sounds Present, Soft, Non Tender, Non-Distended : No renal angle tenderness. No suprapubic tenderness. Extremities: No edema, Capillary Refill Less than 3 Seconds Skin: Chronic thrombophlebitis of left antecubital veins. No rashes, No breakdown Musculoskeletal: No Tenderness to Palpation of Joints or Extremities Neurological: Cranial nerves II-XII grossly intact, Deep Tendon Reflexes 2+/4 and Symmetrical, Neuro grossly intact Psych/Mental Status: Normal Affect, Appropriate. - Physical Exam Vitals/I&O's: Vital Signs Temp Pulse Resp BP Pulse Ox 97.8 F 73 16 123/68 H 96 10/08/20 07:28 10/08/20 07:28 10/08/20 07:28 10/08/20 07:28 10/08/20 07:28 Oxygen Delivery Method Room Air Weight: 166 lb 7 oz Body Mass Index (BMI) 23.8 Intake and Output for Last 24 Hours 10/06/20 10/07/20 10/08/20 23:59 23:59 23:59 Intake Total 1748 / 1748 3177.75 / 3177.75 656 / 656 Balance 1748 / 1748 3177.75 / 3177.75 656 / 656 Laboratory Results 10/08/20 04:10: Vancomycin Trough 13.6 10/08/20 04:10: WBC 7.5, RBC 4.85, Hgb 14.6, Hct 43.1, MCV 88.9, MCH 30.1, MCHC 33.9, RDW Std Deviation 38.9, RDW Coeff of Chuckie 11.9, Plt Count 252, MPV 10.1, Immature Gran % (Auto) 0.300, Neut % (Auto) 64.7, Lymph % (Auto) 21.7, [place] % (Auto) 10.0, Eos % (Auto) 2.8, Baso % (Auto) 0.5, Absolute Neuts (auto) 4.9, Absolute Lymphs (auto) 1.63, Nucleated RBC % 0 10/08/20 04:10: Sodium 140, Potassium 3.8, Chloride 109 H, Carbon Dioxide 26.0, Anion Gap 5, BUN 9, Creatinine 0.60 L, Estim Creat Clear Calc 172.36, Est GFR (MDRD) Af Amer 195, Est GFR (MDRD) Non-Af 161, BUN/Creatinine Ratio 15.1, Glucose 87, Calcium 8.2 L Current Medications Acetaminophen (Acetaminophen 500 Mg Tablet) 500 mg PO Q4H PRN PRN PRN Reason: Temp > 100.4 F Acetaminophen (Acetaminophen 325 Mg Tablet) 650 mg PO Q6H PRN PRN PRN Reason: Pain Score 1-10 Last Admin: 10/06/20 20:21 Dose: 650 mg Documented by: Al Hydroxide/Mg Hydroxide (Mag Hydrox/Al Hydrox/Simeth 30 Ml Udc) 30 ml PO Q6H PRN PRN PRN Reason: Gastric Burning Vancomycin IV Pharmacy to Dose (1 ea/ Sodium Chloride) 500 mls @ 250 mls/hr IV PRN PRN; Protocol PRN Reason: Rx to Dose Sodium Chloride () 250 mls @ 15 mls/hr IV .[id number] PRN PRN Reason: Saline Flush Last Infusion: 10/08/20 00:15 Dose: 0 mls/hr Documented by: Ampicillin Sodium/Sulbactam (Sodium 3 gm/ Sodium Chloride) 112 mls @ 150 mls/hr IV Q8 [facility] Last Infusion: 10/08/20 07:49 Dose: Infused Documented by: Vancomycin HCl 1,500 mg/ (Sodium Chloride) 530 mls @ 250 mls/hr IV Q8H [facility] Last Infusion: 10/08/20 06:50 Dose: Infused Documented by: Ibuprofen (Ibuprofen 600 Mg Tablet) 600 mg PO Q8H PRN PRN PRN Reason: Pain Score 1-10 Last Admin: 10/08/20 07:19 Dose: 600 mg Documented by: Nicotine (Nicotine 21 Mg Patch) 21 mg TD DAILY [facility] Last Admin: 10/08/20 07:15 Dose: 21 mg Documented by: Nicotine Polacrilex (Nicotine Polacrilex 2 Mg Gum) 2 mg PO Q2H PRN PRN PRN Reason: Nicotine Craving Ondansetron HCl (Ondansetron 4 Mg/2 Ml Vial) 4 mg IV Q8H PRN PRN PRN Reason: NAUSEA/VOMITING Senna (Senna Tablet) 2 tablet PO QHS PRN PRN Reason: Constipation Sodium Chloride (0.9% Saline Lock 10 Ml Syringe) 10 - 40 ml IV UD PRN PRN Reason: SALINE FLUSH Last Admin: 10/08/20 04:08 Dose: 10 ml Documented by: Home Medications: Medications to take at Discharge Amox/Clavulanate Tablet [Augmentin Tablet] 875 mg PO Q12H #14 tab 10/08/20 Ibuprofen 600 mg PO Q8H PRN #0 10/08/20 Nicotine [Nicoderm Cq] 21 mg TD DAILY #30 patch 10/08/20 Following Prescriptions Were Given to Patient: Amox/Clavulanate Tablet [Augmentin Tablet] 875 mg PO Q12H #14 tab Transmission Status: Pending to [id number] Nicotine [Nicoderm Cq] 21 mg TD DAILY #30 patch Transmission Status: Pending to [facility]/pharmacy #[id number] Primary Care Physician: Care Physician,No Primary [Primary Care Provider] - Medical Necessity - Tobacco Use Smoking Status: Current every day smoker Tobacco Use: Cigarettes, Chew Meaningful Use Info Meaningful Use Diagnoses (Choose all that apply): None applicable Inpatient E&M: [id number] [facility]
[2020-10-08 12:59] VITALS: BP 112/58; PULSE 75; RESP 16; TEMP 36.9; O2SAT 99
== END 2020-10-08 15:18 | disposition home or self-care (01) | DRG 603 ==
LOC: ED 18:10 → MS3 21:20
PROVIDERS: Student in an Organized Health Care Education/Training Program; Admitting Provider Internal Medicine; Emergency Provider Emergency Medicine; Visit Provider Internal Medicine
DX: L03.114 Cellulitis of left upper limb (principal); F17.210 Nicotine dependence, cigarettes, uncomplicated; F15.90 Other stimulant use, unspecified, uncomplicated; M60.9 Myositis, unspecified
CPT/HCPCS: 36415; 73201; 73221; 80048; 80076; 80202; 85025; 85652; 86140; 99284; 99406; J7040; J7050; Q9967; A4216; J0295

== ENCOUNTER 2022-01-16 13:46 | Emergency (ER) | payer MEDICAID, SELFPAY ==
[2022-01-16 13:47] VITALS: BP 108/71; PULSE 124; RESP 18; TEMP 36.3; O2SAT 99; BMI 22.9
--- NOTE | 2022-01-16 14:09 | US_ITS ---
STUDY: SCROTUM ULTRASOUND REASON FOR EXAM: Male, 41 years old. left pain, swelling TECHNIQUE: Ultrasound evaluation of the scrotum was performed with color Doppler and static stoll-scale imaging. COMPARISON: None. FINDINGS: RIGHT TESTICLE INTRATESTICULAR: There is a normal size of the right testicle. The right testicle measures 4.9 x 2.7 x 2.4 cm. There is a homogenous echotexture. There is normal arterial and normal venous vascularity. There is no demonstrated right testicular mass or cyst. EXTRATESTICULAR: The epididymis is normal in size. The epididymis head measures 1.8 cm. There is normal vascularity of the epididymis. There is a well-defined cystic structure within the epididymis, without internal echoes, consistent with an epididymal cyst. There is no demonstrated hydrocele. There is no demonstrated varicocele. There is no demonstrated extratesticular mass or cyst. LEFT TESTICLE INTRATESTICULAR: There is a normal size of the left testicle. The left testicle measures 4.3 x 3.3 x 2.4 cm. There is a homogenous echotexture. There is normal arterial and normal venous vascularity. There is no demonstrated left testicular mass or cyst. EXTRATESTICULAR: The epididymis is normal in size. The epididymis head measures 2.4 cm. There is increased (hyperemic) vascularity of the epididymis. There is no demonstrated epididymal cystic structure. There is a small hydrocele. There are prominent extratesticular veins consistent with a varicocele. There is no demonstrated extratesticular mass or cyst. US/Testicular with Arterial Flow IMPRESSION: 1. Normal bilateral testicles. 2. Enlargement and hyperemia of the left epididymis suggesting epididymitis. 3. Left varicocele. 4. Small left hydrocele. Electronically Signed: Reji Dawkins MD ([place]) at 15:32 EDT Reading Location ID and State: , Service support ,
--- NOTE | 2022-01-16 14:25 | EDS_ITS ---
HPI History of Present Illness Chief Complaint: Male Pain/Injury Informant: patient Narrative Narrative: Patient is a 41-year-old male who denies any significant past medical history presenting with left-sided testicular pain and swelling. Symptoms started 2 days ago. Denies and dysuria, penile discharge, or testicular trauma. No new sexual partners. Does not think he has an STI. Pain is been gradual in onset. Is now having a right-sided headache as well. No other complaints at this time. No fever or chills. [facility] Medical History (Updated 01/16/22 @ 23:[address] Radha Otto, DO) Depression Hepatitis C Home Medications Ibuprofen 600 mg PO Q8H PRN #0 10/08/20 [Rx Last Taken 10/04/20] amoxicillin-pot clavulanate 875 mg PO Q12H #14 tab 10/08/20 [Rx Last Taken Unknown] nicotine 21 mg TD DAILY #30 patch 10/08/20 [Rx Last Taken Unknown] doxycycline hyclate 100 mg PO BID #20 cap 01/16/22 [Rx Last Taken Unknown] hydrocodone-acetaminophen 1 tab PO Q6H PRN 3 Days #12 tab 01/16/22 [Rx Last Taken Unknown] ibuprofen 600 mg PO Q6H PRN PRN #20 tab 01/16/22 [Rx Last Taken Unknown] levofloxacin 500 mg PO DAILY #10 tab 01/16/22 [Rx Last Taken Unknown] Allergy/AdvReac Type Severity Reaction Status Date / Time No Known Allergies Allergy Verified 01/16/22 13:48 Social History Smoking Status: Current every day smoker tobacco type: cigarettes ROS ROS ED Constitutional Constitutional ED: Denies chills or fever(s) Eyes Eyes: Denies change in vision ENT ENT ED: Denies sore throat Cardiovascular Cardiovascular: Denies chest pain Respiratory/Chest Respiratory/Chest: Denies dyspnea Gastrointestinal Gastrointestinal: Reports nausea; Denies diarrhea or vomiting Genitourinary Genitourinary ED: Reports testicular swelling and other Details: left scrotal swelling and pain ; Denies dysuria, hematuria or urinary frequency Musculoskeletal Musculoskeletal: Denies arthralgias or myalgias Integumentary Denies rash Neurologic Neurologic: Reports headache(s); Denies weakness Psychiatric Psychiatric: Denies depression EXAM Physical Exam Const Vital Signs: 01/16/22 13:47 01/16/22 18:27 Temperature 97.3 F L 98.4 F Temperature Source Temporal Pulse Rate 124 H 66 Respiratory Rate 18 14 Blood Pressure 108/71 134/78 H Blood Pressure Mean 83 Pulse Ox 99 98 Oxygen Delivery Method Room Air Positive well nourished and well developed General Appearance ED: well developed and NAD HEENT Reports moist mucous membranes normocephalic and atraumatic Eyes PERRL and EOMs intact bilaterally Neck supple Neck Narrative: No meningeal signs Resp normal respiratory effort and clear to auscultation bilaterally Cardio regular rhythm and no murmurs Rate: tachycardic GI non-tender and non-distended Auscultation: normoactive bowel sounds Palpation: soft no CVA tenderness Penis: normal penis and circumcised Scrotum: cremasteric reflex absent left, tenderness, edematous left and scrotal swelling left; Negative for erythema or ecchymosis Testes: testicular swelling left and testicular tenderness left; Negative for blue dot sign or high-riding testicle Back/Spine no CVA tenderness Extremity normal to inspection Neuro oriented x3, CN's II-XII intact bilaterally and no focal motor deficits Sensorium / Orientation: alert Motor Exam: no movement abnormalities noted Psych mental status grossly normal Skin Lesions: no lesions Rashes: no rashes MDM MDM MDM Narrative Medical decision making narrative: Patient evaluated for 2 days of worsening scrotal pain and swelling. He does have significant pain, swelling and left testicle. Ultrasound obtained which is consistent with epididymitis. Patient denies any risk factors for STIs. Denies any penile discharge. Urine gonorrhea and chlamydia are pending. Patient be treated with Levaquin and given first dose in the emergency room. He is given IV fluids as well as morphine and Toradol in the ER for pain control. We discharged as well with a course of Motrin and Lynn for pain control. Is given urology for follow-up. Counseled on wearing high riding underwear to help with the pain. After patient was discharged his chlamydia did come back positive. He is contacted with his results and doxycycline was sent to the pharmacy for him to take in addition to the Levaquin. Counseled that he needs to inform any sexual partners about his STD status. Lab Data Labs: Laboratory Results - last 24 hr 01/16/22 01/16/22 17:35 17:35 Urine Color Yellow Urine Clarity Clear Urine pH 6.0 Ur Specific Ger[place] 1.020 Urine Protein 30 H Urine Glucose (UA) Normal Urine Ketones Negative Urine Occult Blood 25 H Urine Nitrite Negative Urine Bilirubin Negative Urine Urobilinogen Normal Ur Leukocyte Esterase 500 H Urine RBC 0 SEEN Urine WBC 10-25 SEEN Ur Squamous Epith Cells 0 SEEN Urine Bacteria 0 SEEN Urine Mucus RARE Chlam trachomat DNA PCR POSITIVE H N.gonorrhoeae DNA (PCR) Negative Radiography Diagnostic Testing: Clinical Impression(s) from Imaging Studies Testicular Ultrasound 01/16/22 14:09 IMPRESSION: 1. Normal bilateral testicles. 2. Enlargement and hyperemia of the left epididymis suggesting epididymitis. 3. Left varicocele. 4. Small left hydrocele. Electronically Signed: Reji Dawkins MD ([place]) at 15:32 EDT Reading Location ID and State: [place] , Service support , Discharge Plan Triage Chief Complaint: Male Pain/Injury ED Provider: Radha Otto Dx/Rx/DC Orders Clinical Impression: Left epididymitis, Chlamydia Instructions: ED Epididymitis Prescriptions: New levofloxacin 500 mg tablet 500 mg PO DAILY Qty: 10 RF: 0 ibuprofen 600 mg tablet 600 mg PO Q6H PRN PRN (Reason: Pain Score 1-10/10) Qty: 20 RF: 0 hydrocodone-acetaminophen 5-325 mg tablet 1 tab PO Q6H PRN (Reason: pain) 3 Days Qty: 12 RF: 0 doxycycline hyclate 100 mg capsule 100 mg PO BID Qty: 20 RF: 0 No Action nicotine 21 MG patch 21 mg TD DAILY Qty: 30 RF: 0 amoxicillin-pot clavulanate 875 MG tablet 875 mg PO Q12H Qty: 14 RF: 0 Ibuprofen 200 MG tablet 600 mg PO Q8H PRN (Reason: Pain 1-10 Or Fever) Qty: 0 RF: 0 Stand Alone Forms: ED Work / School Excuse Primary Care Provider: Care Physician,No Primary Referrals: Jed Yun MD [STAFF PHYSICIAN] - Care Physician,No Primary [Primary Care Provider] - Activity Restrictions/Additional Instructions: Wear high riding underwear or jockstrap to help with the pain. Take the entire course of antibiotics as prescribed. Disposition Disposition: Home, Self Care Discharge Date/Time: 01/16/22 18:35
[2022-01-16] MEDS: 0.9% Normal Saline 1,000 ML 999 ML IV (14:54)
[2022-01-16] MEDS: Ketorolac 15 MG/ML Vial IV (14:54)
[2022-01-16] MEDS: Morphine 4 MG/ML Syringe IV (14:55)
[2022-01-16] MEDS: Ondansetron 4 MG/2 ML Vial IV (14:55)
[2022-01-16 17:41] LABS: Bacteria 0 SEEN /hpf (None Seen); Red Blood Cells-Urine 0 SEEN /hpf (0-5); Squamous Epithelial Cells - UA 0 SEEN /hpf (0-5)
[2022-01-16 18:09] LABS: Color, Urine Yellow (Yellow); Glucose, Dipstick Normal (Normal); Ketone-Dipstick Negative (Negative); Leukocyte Esterase-Dipstick 500 /ul (Negative); Nitrite-Dipstick Negative (Negative); Occult Blood-Urine 25 /ul (Negative); Protein-Dipstick 30 mg/dl (Negative); Urine Bilirubin Dipstick Negative (Negative); Urine Clarity Clear (Clear); Urine Urobilinogen Normal (Normal)
[2022-01-16 18:27] VITALS: BP 134/78; PULSE 66; RESP 14; TEMP 36.9; O2SAT 98
[2022-01-16] MEDS: levoFLOXacin 500 MG Tablet PO (18:33)
[2022-01-16 18:34] LABS: Mucous, Urine RARE /hpf (<or=2+); White Blood Cells 10-25 SEEN /hpf (0-5)
[2022-01-16 21:10] LABS: Chlamydia Trachomatis by PCR POSITIVE (Negative); Neisserai gonorrhoeae by PCR Negative (Negative); Probe Check PASS
--- NOTE | 2022-01-16 21:15 | ED.RN ---
PATIENT CALLED AND MADE AWARE OF POSITIVE CHLAMYDIA TEST. PATIENT MADE AWARE OF NEED FOR ATX. ATX TO BE CALLED IN FOR PATIENT. PATIENT ADVISED TO FOLLOW UP WITH PCP FOR FURTHER CARE
== END 2022-01-16 18:35 | disposition home or self-care (01) ==
PROVIDERS: Emergency Provider Emergency Medicine; Visit Provider Emergency Medicine
DX: N45.1 Epididymitis (principal); A56.19 Other chlamydial genitourinary infection; F17.210 Nicotine dependence, cigarettes, uncomplicated; F32.A Depression, unspecified; Z79.899 Other long term (current) drug therapy
CPT/HCPCS: 76870; 81001; 87086; 87491; 87591; 93976; 96361; 96374; 96375; 99284; J7030; A4216; J2405

== ENCOUNTER 2022-01-19 18:06 | Emergency (ER) | payer MEDICAID, SELFPAY ==
[2022-01-19 18:07] VITALS: BP 145/85; PULSE 107; RESP 18; TEMP 36.6; O2SAT 98; BMI 22.9
--- NOTE | 2022-01-19 19:11 | EX.ED.GUMALE ---
HPI History of Present Illness Chief Complaint: Male Pain/Injury Detail of Chief Complaint: Pain and swelling to left testicle Informant: patient Narrative Narrative: Patient presents to the emergency department complaint of pain and swelling to his left testicle. Patient states that he was seen in the emergency department 4 days ago and diagnosed with epididymitis. Patient initially was started on Levaquin and subsequently he has chlamydia screen came back positive and he was switched he states the doxycycline but the note in the computer states that he was supposed to take both the Levaquin and the doxycycline. Patient states that the pain in the abdomen is mostly resolved now but he noticed that he there is some more firmness now to the left testicle and increased swelling and he became concerned. In the prior physicians note it was stated that he would get a referral to urology but patient is unaware of that and states he has paperwork at home and it is possible that he did get a referral but has not made a follow-up appointment. Patient denies any fevers. He denies any trauma to his testicles. Prior similar symptoms: No PFSH PFSH Medical History (Updated 01/19/22 @ 19:[address] Alycia Barger, ) Depression Hepatitis C Home Medications Ibuprofen 600 mg PO Q8H PRN #0 10/08/20 [Rx Last Taken 10/04/20] doxycycline hyclate 100 mg PO BID #20 cap 01/16/22 [Rx Last Taken 01/19/22 17:00] hydrocodone-acetaminophen 1 tab PO Q6H PRN 3 Days #12 tab 01/16/22 [Rx Last Taken 01/19/22 04:00] ibuprofen 600 mg PO Q6H PRN PRN #20 tab 01/16/22 [Rx Last Taken 01/19/22 17:00] levofloxacin 500 mg PO DAILY #10 tab 01/16/22 [Rx Last Taken 01/16/22] hydrocodone-acetaminophen 1 tab PO Q4H PRN PRN 2 Days #10 tablet 01/19/22 [Rx Last Taken Unknown] Allergy/AdvReac Type Severity Reaction Status Date / Time No Known Allergies Allergy Verified 01/19/22 18:10 Social History Smoking Status: Current every day smoker tobacco type: cigarettes ROS ROS ED Constitutional Constitutional ED: Reports systems reviewed and no addt'l complaints, except as documented; Denies body ache(s), change in weight or chills Eyes Eyes: Denies acute decrease in peripheral vision, change in vision, double vision or loss of vision ENT ENT ED: Reports none; Denies ear pain, lip swelling, loss taste/smell, neck pain, otalgia or sore throat Cardiovascular Cardiovascular: Reports none; Denies abdominal pain, chest pain with activity, leg edema, lightheadedness, palpitations, rapid heart rate or syncope Respiratory/Chest Respiratory/Chest: Reports none; Denies change in mental status, dry cough, dyspnea, hemoptysis, shortness of breath at rest or shortness of breath with exertion Gastrointestinal Gastrointestinal: Reports none; Denies abdominal pain, change in stool character, diarrhea, hematemesis, hematochezia, melena, rectal bleeding or vomiting Genitourinary Genitourinary ED: Reports none and other Details: Left testicle swelling and pain ; Denies abdominal discomfort, anuria, dysuria, genital pain or polyuria Musculoskeletal Musculoskeletal: Reports none; Denies arthralgias, back pain, difficulty walking, extremity pain, muscle weakness or myalgias Integumentary Reports none; Denies abscess or rash Neurologic Neurologic: Reports none; Denies abnormal gait, confusion, focal weakness, frequent falls, headache(s), loss of vision, numbness, paresthesias, radicular pain, vertigo or weakness Psychiatric Psychiatric: Reports systems reviewed and no addt'l complaints, except as documented and none; Denies behavioral changes, confusion, difficulty concentrating, hallucinations, suicidal ideation, tactile hallucinations or visual hallucinations Endocrine Endocrinology: Denies none, cold intolerance, excessive sweating, fatigue or heat intolerance Hematologic/Lymphatic Hematologic/Lymphatic: Reports none; Denies anemia, easy bleeding or easy bruising Allergic/Immunologic Allergic/Immunologic ED: Denies as per HPI, none, lip swelling, mouth swelling, throat swelling, tongue swelling or hives EXAM Physical Exam Const Vital Signs: 01/19/22 18:07 Temperature 97.9 F Temperature Source Temporal Pulse Rate 107 H Respiratory Rate 18 Blood Pressure 145/85 H Blood Pressure Mean 105 Pulse Ox 98 Oxygen Delivery Method Room Air Positive well nourished and well developed General Appearance ED: well developed and NAD HEENT Reports TM's clear and moist mucous membranes normocephalic and atraumatic; Negative for trauma or tenderness Tympanic Membrane ED: Yes TM's clear Eyes PERRL and EOMs intact bilaterally General Eye ED: Negative for pale conjunctiva or scleral icterus Neck no lymphadenopathy, supple and no JVD General: Negative for tenderness Chest Wall inspection of chest normal and palpation of chest normal Chest: Negative for tenderness Resp normal respiratory effort and clear to auscultation bilaterally Effort and Inspection: Negative for respiratory distress or pain with movement Auscultation: Negative for rhonchi, wheezes or diminished lung sounds Cardio regular rate, regular rhythm, S1 normal heart sound, S2 normal heart sound and no murmurs Peripheral Pulses: pulses 2+ throughout GI normal to inspection, nondistended, normoactive bowel sounds, soft to palpation, non-tender, non-distended and no masses Narrative: Patient has a enlarged left-sided scrotum and testicle with tenderness palpation over the epididymis with a firm area noted over the epididymis. No significant cellulitic changes noted to the scrotum. Normal cremasteric reflex bilaterally. Back/Spine no CVA tenderness and no thoracic nor lumbar tenderness Extremity normal to inspection General Extremety ED: Negative for edema General Extremity: Negative for edema Neuro oriented x3, CN's II-XII intact bilaterally, no sensory deficits noted and gait normal Sensorium / Orientation: awake, alert, oriented to person, oriented to place and oriented to time Motor Exam: strength 5/5 throughout and strength abnormal Psych mental status grossly normal Skin no rashes or lesions noted and no wounds MDM MDM MDM Narrative Medical decision making narrative: I attempted to contact the urologist on-call however after not receiving a call back in an hour the patient no longer wanted to wait and would like to go home. I will give him a prescription for [place] and referral to urology to follow-up within the next 3 to 5 days. Patient advised to return if worsening pain, increased swelling, or conditions worsen anyway. He is instructed to use scrotal support and some warm compresses to the area. Discharge Plan Triage Chief Complaint: Male Pain/Injury ED Provider: Alycia Barger Dx/Rx/DC Orders Clinical Impression: Left epididymitis Instructions: ED Epididymitis Prescriptions: New hydrocodone-acetaminophen [hydrocodone-acetaminophen] 1 TABLET tablet 1 tab PO Q4H PRN PRN (Reason: Pain) 2 Days Qty: 10 RF: 0 No Action Ibuprofen 200 MG tablet 600 mg PO Q8H PRN (Reason: Pain 1-10 Or Fever) Qty: 0 RF: 0 levofloxacin 500 mg tablet 500 mg PO DAILY Qty: 10 RF: 0 ibuprofen 600 mg tablet 600 mg PO Q6H PRN PRN (Reason: Pain Score 1-10/10) Qty: 20 RF: 0 hydrocodone-acetaminophen 5-325 mg tablet 1 tab PO Q6H PRN (Reason: pain) 3 Days Qty: 12 RF: 0 doxycycline hyclate 100 mg capsule 100 mg PO BID Qty: 20 RF: 0 Primary Care Provider: Care Physician,No Primary Referrals: Jed Yun MD [STAFF PHYSICIAN] - 3-5 Days Care Physician,No Primary [Primary Care Provider] - Disposition Disposition: Home, Self Care
[2022-01-19 19:21] VITALS: RESP 16
== END 2022-01-19 19:23 | disposition home or self-care (01) ==
PROVIDERS: Emergency Provider Emergency Medicine; Visit Provider Emergency Medicine
DX: A56.19 Other chlamydial genitourinary infection (principal); F17.210 Nicotine dependence, cigarettes, uncomplicated; Z86.19 Personal history of other infectious and parasitic diseases
CPT/HCPCS: 99282

== ENCOUNTER 2023-07-23 20:44 | Emergency (ER) | payer MEDICAID, SELFPAY ==
[2023-07-23 20:45] VITALS: BP 157/97; PULSE 110; RESP 16; TEMP 36.3; O2SAT 99; BMI 23.6
--- NOTE | 2023-07-23 21:44 | EX.ED.DYSGE1 ---
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 Patient states been present for the past 2 to 3 days. He states he works in [employer] and was dragging his left foot underneath him while he was working the other day. His shoes rubbed on an area around his ankle. It is gotten worse since then. He denies any drainage. Denies any systemic symptoms such as fever, chills, nausea or vomiting. Notes that he does feel chills right now but states he is just cold from being in the ER. Denies any other complaints or concerns at this time. Does not have a primary care doctor [facility] Medical History Depression Hepatitis C Home Medications Ibuprofen 600 mg PO Q8H PRN Pain 1-10 Or Fever ##0 10/08/20 [Rx Last Taken 10/04/20] doxycycline hyclate 100 mg capsule 100 mg PO BID #20 caps 01/16/22 [Rx Last Taken 01/19/22 17:00] hydrocodone-acetaminophen 5-325mg 5mg-325mg 1 tab PO Q6H PRN pain 3 days #12 tabs 01/16/22 [Rx Last Taken 01/19/22 04:00] ibuprofen 600 mg tablet 600 mg PO Q6H PRN PRN Pain Score 1-10/10 #20 tabs 01/16/22 [Rx Last Taken 01/19/22 17:00] levofloxacin 500 mg tablet 500 mg PO DAILY #10 tabs 01/16/22 [Rx Last Taken 01/16/22] hydrocodone-acetaminophen 5-325mg 5mg-325mg 1 tab PO Q4H PRN PRN Pain 2 days #10 TABLETS 01/19/22 [Rx Last Taken Unknown] cephalexin 500 mg capsule 500 mg PO Q6 #40 CAPSULES 07/23/23 [Rx Last Taken Unknown] sulfamethoxazole 800 mg-trimethoprim 160 mg tablet (Bactrim DS) 1 tab PO BID 10 days #20 tabs 07/23/23 [Rx Last Taken Unknown] Allergy/AdvReac Type Severity Reaction Status Date / Time No Known Allergies Allergy Verified 01/19/22 18:10 Social History Smoking Status: Current every day smoker tobacco type: cigarettes ROS ROS ED Constitutional Constitutional ED: Reports chills; Denies fever(s) or sweats Respiratory/Chest Respiratory/Chest: Denies cough Gastrointestinal Gastrointestinal: Denies abdominal pain, nausea or vomiting Musculoskeletal Musculoskeletal: Denies arthralgias or myalgias Integumentary Reports rash; Denies abscess Neurologic Neurologic: Denies headache(s) or weakness EXAM Physical Exam Const Vital Signs: 07/23/23 20:45 Temperature 97.4 F L Temperature Source Temporal Pulse Rate 110 H Respiratory Rate 16 Blood Pressure 157/97 H Blood Pressure Mean 117 Pulse Ox 99 Oxygen Delivery Method Room Air Positive well nourished and well developed General Appearance ED: well developed and NAD HEENT Reports moist mucous membranes Eyes PERRL Neck supple Resp normal respiratory effort and clear to auscultation bilaterally Cardio regular rate and regular rhythm Extremity normal to inspection Extremity Narrative: 2+ DP pulses General Extremety ED: Negative for edema or tenderness General Extremity: Negative for edema Neuro oriented x3 Psych mental status grossly normal Skin Skin Narrative: Patient has a 1 cm ulcerated healing wound/abrasion of inferior to the lateral malleolus of the left lower extremity. No surrounding cellulitic or erythematous changes. No discharge. Proximal to the lateral malleolus of the left lower extremity there is a 5 cm x 4 cm area of erythema with a 2 cm x 2 cm central area of induration. There is a central ulcerated area. There is no associated fluctuance or drainage. No associated lymphangitic streaking. No other rash or skin changes appreciated. MDM MDM MDM Narrative Medical decision making narrative: Patient is evaluated for redness and discomfort to his left lower leg. His exam consistent with cellulitis and possible early abscess but this time I do not appreciating fluctuance and it is not amenable to drainage. Will cover with Bactrim and Keflex given he does have a history of MRSA. Counseled on warm compresses. Counseled to alternate ibuprofen and Tylenol as needed for discomfort. Counseled to use padding with his work shoes so its not continuously rubbing the area. Given return precautions. Is given referral for outpatient follow-up. Discharged home in stable condition. Differential?cellulitis, abscess (less consistent with physical exam), peripheral vascular disease (good distal pulses less suspicion for that) Discharge Plan Triage Chief Complaint: Wound ED Provider: Radha Otto Dx/Rx/DC Orders Clinical Impression: Cellulitis of left leg Instructions: ED Cellulitis Prescriptions: New sulfamethoxazole-trimethoprim [Bactrim DS] 800-160 mg tablet 1 tab PO BID 10 Days Qty: 20 0RF cephalexin 500 mg capsule 500 mg PO Q6 Qty: 40 0RF No Action Ibuprofen 200 MG tablet 600 mg PO Q8H PRN (Reason: Pain 1-10 Or Fever) Qty: 0 0RF Rx Instructions: [id number] pain medication. Duration for total of 5 days levofloxacin 500 mg tablet 500 mg PO DAILY Qty: 10 0RF ibuprofen 600 mg tablet 600 mg PO Q6H PRN PRN (Reason: Pain Score 1-10/10) Qty: 20 0RF hydrocodone-acetaminophen 5-325 mg tablet 1 tab PO Q6H PRN (Reason: pain) 3 Days Qty: 12 0RF doxycycline hyclate 100 mg capsule 100 mg PO BID Qty: 20 0RF hydrocodone-acetaminophen [hydrocodone-acetaminophen] 1 TABLET tablet 1 tab PO Q4H PRN PRN (Reason: Pain) 2 Days Qty: 10 0RF Primary Care Provider: Care Physician,No Primary Referrals: Shaniqua Weeks [Non-Staff] - 3-5 Days if not improving Care Physician,No Primary [Primary Care Provider] - Activity Restrictions/Additional Instructions: If the redness or symptoms are worsening please return to the emergency room for wound check. Please complete the entire course of antibiotics. To perform warm compresses especially for the first 2 to 3 days. Try to keep the area clean, dry and free from irritation from your shoes. Disposition Disposition: Home, Self Care
[2023-07-23] MEDS: Smz/Tmp Ds Tablet 1 TABLET PO (21:58)
[2023-07-23] MEDS: Cephalexin 250 MG Capsule 500 MG PO (21:58)
== END 2023-07-23 22:15 | disposition home or self-care (01) ==
PROVIDERS: Emergency Provider Emergency Medicine; Visit Provider Emergency Medicine
DX: L03.116 Cellulitis of left lower limb (principal); F17.210 Nicotine dependence, cigarettes, uncomplicated; Z86.14 Personal history of Methicillin resistant Staphylococcus aureus infection
CPT/HCPCS: 99283

== ENCOUNTER 2024-01-13 17:58 | Emergency (ER) | payer MEDICAID, SELFPAY ==
[2024-01-13 17:58] VITALS: BP 129/99; PULSE 84; RESP 18; TEMP 36.1; O2SAT 100; BMI 22.6
[2024-01-13 18:01] VITALS: BP 129/99; PULSE 84; RESP 18; TEMP 36.1; O2SAT 100
[2024-01-13 19:01] VITALS: BP 122/89; PULSE 74; RESP 17; TEMP 36; O2SAT 100
--- NOTE | 2024-01-13 20:30 | EX.ED.DYSGE1 ---
HPI History of Present Illness Chief Complaint: Abscess Detail of Chief Complaint: Left axilla abscesses Informant: patient Narrative Narrative: Patient presents with abscesses to his left axilla that has had for about 3 to 4 days. Patient states that he had an abscess weeks ago that spontaneously drained and resolved on its own. Patient denies fevers or chills or sweats. He has history of MRSA. Patient also is an IV drug user and uses meth but has not injected in his armpit. He is not had any recent illness otherwise. [facility] Medical History Depression Hepatitis C Home Medications Ibuprofen 600 mg PO Q8H PRN Pain 1-10 Or Fever ##0 10/08/20 [Rx Last Taken 10/04/20] doxycycline hyclate 100 mg capsule 100 mg PO BID #20 caps 01/16/22 [Rx Last Taken 01/19/22 17:00] hydrocodone-acetaminophen 5-325mg 5mg-325mg 1 tab PO Q6H PRN pain 3 days #12 tabs 01/16/22 [Rx Last Taken 01/19/22 04:00] ibuprofen 600 mg tablet 600 mg PO Q6H PRN PRN Pain Score 1-10/10 #20 tabs 01/16/22 [Rx Last Taken 01/19/22 17:00] levofloxacin 500 mg tablet 500 mg PO DAILY #10 tabs 01/16/22 [Rx Last Taken 01/16/22] hydrocodone-acetaminophen 5-325mg 5mg-325mg 1 tab PO Q4H PRN PRN Pain 2 days #10 TABLETS 01/19/22 [Rx Last Taken Unknown] cephalexin 500 mg capsule 500 mg PO Q6 #40 CAPSULES 07/23/23 [Rx Last Taken Unknown] sulfamethoxazole 800 mg-trimethoprim 160 mg tablet (Bactrim DS) 1 tab PO BID 10 days #20 tabs 07/23/23 [Rx Last Taken Unknown] cephalexin 500 mg capsule 500 mg PO Q6 #40 CAPSULES 01/13/24 [Rx Last Taken Unknown] sulfamethoxazole 800 mg-trimethoprim 160 mg tablet 1 tab PO BID #20 TABLETS 01/13/24 [Rx Last Taken Unknown] Allergy/AdvReac Type Severity Reaction Status Date / Time No Known Allergies Allergy Verified 01/13/24 17:58 Social History Smoking Status: Former smoker ROS ROS ED Review of Systems ROS Unobtainable: other Constitutional Constitutional ED: Reports lethargy; Denies chills, fever(s), sweats or weight loss Eyes Eyes: Denies blurry vision, change in vision or diplopia ENT ENT ED: Denies rhinorrhea or sore throat Cardiovascular Cardiovascular: Denies chest pain, orthopnea or racing heartbeat Respiratory/Chest Respiratory/Chest: Denies cough, dyspnea, dyspnea on exertion, orthopnea or sputum Gastrointestinal Gastrointestinal: Denies abdominal pain, diarrhea, nausea or vomiting Genitourinary Genitourinary ED: Denies dysuria, hematuria or urinary frequency Musculoskeletal Musculoskeletal: Denies arthralgias, back pain, myalgias or neck pain Integumentary Reports abscess; Denies Abrasions or rash Neurologic Neurologic: Denies headache(s) or weakness Psychiatric Psychiatric: Denies anxiety, depression or suicidal thoughts Endocrine Endocrinology: Denies polydipsia, polyphagia or polyuria Hematologic/Lymphatic Hematologic/Lymphatic: Denies easy bleeding, easy bruising or lymphadenopathy Allergic/Immunologic Allergic/Immunologic ED: Denies mouth swelling, tongue swelling or urticaria EXAM Physical Exam Const Vital Signs: 01/13/24 17:58 01/13/24 18:01 01/13/24 19:01 Temperature 96.9 F L 96.9 F L 96.8 F L Temperature Source Temporal Temporal Temporal Pulse Rate 84 84 74 Respiratory Rate 18 18 17 Blood Pressure 129/99 H 129/99 H 122/89 H Blood Pressure Mean 109 109 100 Pulse Ox 100 100 100 Oxygen Delivery Method Room Air Room Air Room Air Positive well nourished and well developed General Appearance ED: well developed and NAD HEENT Reports TM's clear and moist mucous membranes normocephalic and atraumatic; Negative for trauma or tenderness Tympanic Membrane ED: Yes TM's clear Eyes PERRL and EOMs intact bilaterally General Eye ED: Negative for pale conjunctiva or scleral icterus Neck no lymphadenopathy, supple and no JVD General: Negative for tenderness Chest Wall inspection of chest normal and palpation of chest normal Chest: Negative for tenderness Resp normal respiratory effort and clear to auscultation bilaterally Effort and Inspection: Negative for respiratory distress or pain with movement Auscultation: Negative for rhonchi, wheezes or diminished lung sounds Cardio regular rate, regular rhythm, S1 normal heart sound, S2 normal heart sound and no murmurs Peripheral Pulses: pulses 2+ throughout GI normal to inspection, nondistended, normoactive bowel sounds, soft to palpation, non-tender, non-distended and no masses Back/Spine no CVA tenderness and no thoracic nor lumbar tenderness Extremity Extremity Narrative: Left axilla-patient has 5 small discrete abscesses largest of which measures about 2.5 cm in diameter and up to 1 cm in diameter. Slight fluctuance and mild erythema noted. General Extremety ED: Negative for edema General Extremity: Negative for edema Neuro oriented x3, CN's II-XII intact bilaterally, no sensory deficits noted and gait normal Sensorium / Orientation: awake, alert, oriented to person, oriented to place and oriented to time Motor Exam: strength 5/5 throughout and strength abnormal Psych mental status grossly normal Skin no rashes or lesions noted and no wounds MDM MDM MDM Narrative Medical decision making narrative: Patient presents with small abscesses in his left axilla. I recommended incision and drainage. Initially he agreed to allow me to use the bevel of an 18-gauge needle to make a small stab incision. I cleaned the skin with alcohol and then using 18-gauge needle I made a stab incision into the largest of the abscesses and moderate amount of purulent debris was expressed. Patient did not want me to I&D the others. He states he had antibiotics for these in the past and they have resolved. I will start him on Keflex and Bactrim. He will be given referral to PCP for follow-up within next 3 to 5 days. Will also refer to Dr. Gonzalez. Discharge Plan Triage Chief Complaint: Abscess ED Provider: Alycia Barger Dx/Rx/DC Orders Clinical Impression: Soft tissue abscess Instructions: ED Abscess Antibiotic Treatment Only, ED Abscess Incision And Drainage Prescriptions: New sulfamethoxazole-trimethoprim [sulfamethoxazole-trimethoprim] 800-160 mg tablet 1 tab PO BID Qty: 20 0RF cephalexin [cephalexin] 500 mg capsule 500 mg PO Q6 Qty: 40 0RF No Action Ibuprofen 200 MG tablet 600 mg PO Q8H PRN (Reason: Pain 1-10 Or Fever) Qty: 0 0RF Rx Instructions: [id number] pain medication. Duration for total of 5 days levofloxacin 500 mg tablet 500 mg PO DAILY Qty: 10 0RF ibuprofen 600 mg tablet 600 mg PO Q6H PRN PRN (Reason: Pain Score 1-10/10) Qty: 20 0RF hydrocodone-acetaminophen 5-325 mg tablet 1 tab PO Q6H PRN (Reason: pain) 3 Days Qty: 12 0RF doxycycline hyclate 100 mg capsule 100 mg PO BID Qty: 20 0RF hydrocodone-acetaminophen [hydrocodone-acetaminophen] 1 TABLET tablet 1 tab PO Q4H PRN PRN (Reason: Pain) 2 Days Qty: 10 0RF sulfamethoxazole-trimethoprim [Bactrim DS] 800-160 mg tablet 1 tab PO BID 10 Days Qty: 20 0RF cephalexin 500 mg capsule 500 mg PO Q6 Qty: 40 0RF Primary Care Provider: Care Physician,No Primary Referrals: Patricio Gonzalez MD [Med Staff - Active Staff] - 3-5 Days Elvin Mobley DO [Med Staff - Remote Broadcast Engineer] - 3-5 Days Care Physician,No Primary [Primary Care Provider] - Disposition Disposition: Home, Self Care
[2024-01-13] MEDS: Smz/Tmp Ds Tablet 1 TABLET PO (20:44)
[2024-01-13] MEDS: Cephalexin 250 MG Capsule 500 MG PO (20:45)
[2024-01-13 20:46] VITALS: BP 168/85; PULSE 76; RESP 18; TEMP 36.7; O2SAT 98
== END 2024-01-13 20:49 | disposition home or self-care (01) ==
LOC: ED 20:47
PROVIDERS: Emergency Provider Emergency Medicine; Visit Provider Emergency Medicine
DX: L02.412 Cutaneous abscess of left axilla (principal); Z87.891 Personal history of nicotine dependence
CPT/HCPCS: 10060; 99282